=== PATIENT | female | born 1985 | race Hispanic/Latino ===

== ENCOUNTER 2017-06-19 14:10 | Emergency (ER) | payer MEDICAID ==
--- NOTE | 2017-06-19 15:41 | ULT ---
HISTORY: Pelvic cramping bilaterally. Positive test. Multiple longitudinal and transverse images of the pelvis is obtained using a multihertz curvilinear transabdominal as well as multihertz endovaginal transducers. Real time, color flow and spectral wave form doppler analysis used to evaluate the pelvis No evidence of viable intrauterine seen. The uterus measures 10.9 x 5.8 x 6.9 cm. Endometri um is double wall thickness of 2.7 cm. There is a uterine fibroid seen in the fundus measuring 1.6 x 1.6 x 1.6 cm. No evidence of free pelvi c fluid seen. Both ovaries visualized. There is good blood flow seen in both ovaries. The right ovary measures 5.0 x 2.8 x 2.6 cm containing a cyst measuring 2.0 x 1.8 x 1.8 cm. The left ovary is seen measuring 2.4 x 1.5 x 1.7 cm. IMPRESSION: 1. Right ovarian cyst. 2. No evidence of a viable intrauterine . Correlate with followup sonography and follow up HCG levels if there is concern for . POS: AMINTA
== END 2017-06-19 16:52 | disposition left against medical advice (07) ==
LOC: ERS 14:10
DX: Z53.21 Procedure and treatment not carried out due to patient leaving prior to being seen by health care provider (principal)
CPT/HCPCS: 76856

== ENCOUNTER 2017-06-19 17:38 | Emergency (ER) | payer MEDICAID, OTHER | END 2017-06-19 19:47 | disposition home or self-care (01) | LOC: ERS 17:38 | DX: R10.30 Lower abdominal pain, unspecified (principal); I10 Essential (primary) hypertension | CPT/HCPCS: 36415; 76856; 86900; 86901; 99284 ==

== ENCOUNTER 2017-08-07 11:54 | Emergency (ER) | payer OTHER | END 2017-08-07 14:23 | disposition home or self-care (01) | LOC: ERS 11:54 | DX: O98.311 Other infections with a predominantly sexual mode of transmission complicating pregnancy, first trimester (principal); O10.911 Unspecified pre-existing hypertension complicating pregnancy, first trimester; O99.341 Other mental disorders complicating pregnancy, first trimester; G47.00 Insomnia, unspecified; Z3A.11 11 weeks gestation of pregnancy | CPT/HCPCS: 99282 ==

== ENCOUNTER 2018-01-08 14:14 | Day surgery (SDC) | payer OTHER ==
[2018-01-08 14:53] VITALS: BP 135/72; TEMP 98.2; BMI 40.4
[2018-01-08] MEDS ORDERED: Promethazine HCl 25 MG/ML VIAL IM PRN (15:20)
[2018-01-08] MEDS ORDERED: Ondansetron HCl/PF 4 MG/2 ML Vial IVP PRN (15:20)
[2018-01-08] MEDS ORDERED: Acetaminophen 500 MG TAB PO SCH (15:30)
--- NOTE | 2018-01-08 15:40 | PDOC.LDHP ---
Addendum entered and electronically signed by Dell Edge MD 01/08/18 15:56: Clinic record shows that prior to 20 week, patient had baseline 24 hour protein of 378 She had a A1c of 5.4 Quad screen not at increased risk. Original Note: Labor and Delivery H&P Chief complaint: other HPI: 32 yo at 32.3 by 8.3 week US with SHALONDA at 03/02/18 presents for headache of 2 week. This complicated by gestational DM controlled with metformin 500mg BID, second trimester US with hadlock of 95%, and chronic HTN, currently on aspirin 81 mg. She complains about a headache lasting for 2 week, not relieved by tylenol. She specifically denies scotoma, RUQ pain, itching, jaundice, LE edema. Her OB hx is pertinent for 4 prior , first one was premature due to labor. Dating criteria: first trimester ultrasound Current complications: gestational diabetes, preeclampsia without severe features Abnormal US findings: Yes (Hadlock 95%, unable to fully visualize face) Current medications: pre-reyes vitamins, other (Aspirin 81 and Metformin 500 BID ) Previous surgical history: none Social history: none - Physical Exam Vital signs reviewed and normal: yes General: NAD, resting Heart: RRR Lungs: CTAB Abdomen: gravid Extremeties: no edema [place] contractions every: Not on monitor yet at this time - OB Labs Blood type: AB RH: positive Antibody Screen: negative HIV: negative RPR: negative HEPSAg: negative 1 hour GCT: positive 3 hour GTT: Fast: 70-99 1HR 187 MG/DL 2HR 164 MG/DL GBS: negative (Urine negative on 12/06) Urine drug screen: not done Rubella: immune - Assessment 1.Hx of chronic HTN, rule out superimposed pre-e. - BP mildly elevated above baselien at 147/91 but complicated by headache for past 2 week, not relieved with tylenol. She had BPP/NST that was reassuring today in clinic at 11/30, -2 for breathing. Her complicated by A1GDM that converted to A2GDM. - Plan to obtain CBC, CMP, Urine protein/creatinine ratio. Measured BP q30 min, monitor for at least 4 hours for sign of BP in severe range. - TSH was normal in clinic. 2. Gestational diabetes mellitus, class A2 Was last reported to be uncontrolled, patient was then started on metformin 500 BID. She does not have her sugar log with her today. Will gather a glucose level. Recheck as needed. - Patient to resume weekly BPP/NST at clinic. <Dell Edge - Last Filed: 01/08/18 15:26> <Diana Dunn - Last Filed: 01/09/18 13:16> Allergies/Adverse Reactions: Allergies Allergy/AdvReac Type Severity Reaction Status Date / Time No Known Allergies Allergy Unverified 01/08/18 14:49 Attending Addendum - Attending Addendum Date/Time: 01/09/18 7234 I personally evaluated the patient and discussed the management with Dr. Edge I agree with the History, Examination, Assessment and Plan documented above with any addition or exceptions noted below. 32 yo at 32.3 by 8.3 week US sent from clinic for LEON x 2 week in setting of chronic HTN. Pt describes frontal headache without photo/phonophobia , nausea, vomiting, visual changes or RUQ pain. She states she has only tried to take 1 tylenol. Home BP has been normotensive. While in triage BP remained normotensive or mild range. LEON improved with 1000mg of tylenol. Preeclampsia labs: PLT-253 AST- 14 ALT-9 Creatinine-0.63 Urine protein:Creatinine ratio- 0.109 Laboratory findings, symptoms and blood pressures not consistent with superimposed preeclampsia at this time D/C to home with 24hr TUP collection and strict precautions. Followup scheduled with PCP this week. <Diana Dunn - Last Filed: 01/09/18 13:16>
[2018-01-08 16:21] LABS: #Basophils 0.1 thou/uL (0.0-0.2); #Eosinphils 0.1 thou/uL (0.0-0.7); #Lymphocytes 1.5 thou/uL (1.20-3.40); #Monocytes 0.6 thou/uL (0.11-0.59); #Neutrophils 5.4 thou/uL (1.40-6.50); %Basophils 0.8 % (0.0-1.0); %Eosinophils 1.2 % (0.0-10.0); %Lymphocytes 19.2 % (21.0-51.0); %Monocytes 7.8 % (0.0-10.0); %Neutrophils 70.9 % (42.0-75.0); Hemoglobin 13.1 g/dL (12.0-16.0); Mean Corpuscular HGB CONC 34.6 g/dL (32.0-36.0); Mean Corpuscular Hemoglobin 30.1 pg (27.0-31.0); Mean Platelet Volume 7.4 fL (7.4-10.4); Platelet Count 253 thou/uL (130-400); RBC Distribution Width 12.1 % (11.5-14.5); Red Blood Cell (RBC) Count 4.37 mill/uL (4.20-5.40); White Blood Cell (WBC) Count 7.6 thou/uL (4.8-10.8)
[2018-01-08 16:45] LABS: ALT (SGPT) 9 U/L (8-55); AST (SGOT) 14 U/L (5-34); Albumin 3.5 g/dL (3.5-5.0); Alkaline Phosphatase 112 U/L (40-150); Anion Gap 15 mmol/L (10-20); BUN (Urea Nitrogen) 8 mg/dL (7.0-18.7); Bilirubin, Total 0.5 mg/dL (0.2-1.2); Calc. Creatinine Clearance 198 mL/min (70-130); Calcium 9.2 mg/dL (7.8-10.44); Carbon Dioxide 19 mmol/L (22-29); Chloride 107 mmol/L (98-107); Estimated GFR-MDRD Greater than 90; Globulin 3.2 g/dL (2.4-3.5); Glucose 116 mg/dL (70-105); Potassium 3.8 mmol/L (3.5-5.1); Protein, Total 6.7 g/dL (6.0-8.3); Sodium 137 mmol/L (136-145)
[2018-01-08 16:50] LABS: Creatinine, Urine 200.88 mg/dL (47-110)
== END 2018-01-08 17:33 | disposition home or self-care (01) ==
LOC: L&D/OP 14:14
PROVIDERS: ATTEND Family Medicine
DX: O99.89 Other specified diseases and conditions complicating pregnancy, childbirth and the puerperium (principal); R51 Headache; O24.415 Gestational diabetes mellitus in pregnancy, controlled by oral hypoglycemic drugs; O10.013 Pre-existing essential hypertension complicating pregnancy, third trimester; Z3A.32 32 weeks gestation of pregnancy; Z79.84 Long term (current) use of oral hypoglycemic drugs; Z79.82 Long term (current) use of aspirin; Z79.899 Other long term (current) drug therapy
CPT/HCPCS: 36415; 80053; 82570; 84156; 85025; 99285

== ENCOUNTER 2018-01-22 14:17 | Observation (INO) | payer MEDICAID, OTHER ==
--- NOTE | 2018-01-22 14:28 | PDOC.FPROB ---
FMR OB H&P: HPI - History of Present Illness Chief Complaint: Elevated BP, Swelling of hands and feet, Headache Indentification: @ 34.3 wks by 8.3 wk sono History of Present Illness: Rebekah Du is a 32 year old @ 34.3 wks by 8.3 wk sono (SHALONDA 03/02/2018 ) with a history of A2GDM and chronic hypertension with superimposed pre-e who presents who was sent over from clinic with elevated blood pressures, headache, and swelling of her hands and feet. Pt was receiving testing today. Her BP was 156/78 (repeat of 128/78). She reports constant frontal headache () since 6 AM this morning. She states that she took Tylenol this morning but her headache did not resolve with Tylenol, however she reports that her headaches have never been responsive to Tylenol. She denies abdominal pain, scotoma, nausea and vomiting. She denies vaginal bleeding, contractions, and decrease in movements. Over the course of this , her proteinuria has increased above baseline. In August 2017 her 24 hr urine was 378 and in December was 522 mg. BPP today in clinic 01/30. EFW 2532 g and Hadlock 57.5%. Primary Care Physician: Dr. Lashonda Sullivan FMR OB H&P: Current - Care : 5 Para: 3 Gestational age: 34.3 Due date: 03/02/2018 Dating Criteria: 8.3 week sono Total weight gain: 8 lbs - OB Labs Blood type: AB RH: positive Antibody Screen: negative HIV: negative RPR: negative HepBsAg: negative Rubella: immune Quad screen: negative Urine drug screen: not done Gonorrhea: negative Chlamydia: negative 1 hour gtt: 167 3 hour GTT: Fasting - 112; 187,164,115 A1c: 5.4 GBS: unknown H&H: 12.8/36.3 Platelets: 279 FMR OB H&P: History - OB History OB History: Has a history of delivery @ 28 wks with her 1st and has never taken progesterone. FMR OB H&P: Medications - Current Home Medications: Medication Instructions Recorded Confirmed Type Vit Calc,Iron,Folic 1 each PO DAILY 01/08/18 01/22/18 History [ Vitamins] metFORMIN [Glucophage] 500 mg PO BID-WM 01/08/18 01/22/18 History Allergies/Adverse Reactions: Allergies Allergy/AdvReac Type Severity Reaction Status Date / Time No Known Allergies Allergy Unverified 01/22/18 15:22 FMR OB H&P: ROS - Review of Systems General: denies: fever/chills Eyes: denies: eye pain, vision changes, scotomas ENT: reports: nasal congestion Cardiovascular: denies: chest pain Respiratory: denies: shortness of breath Gastrointestinal: denies: abdominal pain Musculoskeletal: denies: pain Neurologic: reports: headache Integumentary: denies: rash Endocrine: denies: polyuria FMR OB H&P: Physical Exam - Physical Exam General: NAD HEENT: normocephalic and atraumatic, EOMI, MMM Heart: RRR, normal S1/S2, no murmurs/rubs/gallops General: CTAB, no respiratory distress, no wheezing Abdomen: soft, gravid, non-tender Musculoskeletal: FROM in all four extremities Neurological: cranial nerves II through XII intact, DTR +2 Skin: no rash, capillary refill <2 seconds Psychiatric: normal mood and affect - Pelvic Exam Estimated Weight: 5 lbs FMR OB H&P: A/P - Problem List (1) Pre-eclampsia added to pre-existing hypertension Current Visit: Yes Status: Acute Code(s): O11.9 - PRE-EXISTING HYPERTENSION WITH PRE-ECLAMPSIA, UNSP TRIMESTER Assessment and Plan: - will monitor BPs on L&D for ~ 4 hours. - will administer 1 g Tylenol and fluids to see if LEON improves. - will rule out severe features with labs including: CBC, uric acid, cmp, urine pr/cr in order to check for liver involvement, thrombocytopenia, liver involvement and renal injury. - if no evidence of severe features, will discharge with expectant management until 37 weeks. - if severe features present, will administer steroids and induce in 48 hrs. (2) Gestational diabetes mellitus (GDM) Current Visit: Yes Status: Acute Code(s): O24.419 - GESTATIONAL DIABETES MELLITUS IN , UNSP CONTROL Qualifiers: Trimester: third trimester Assessment and Plan: Will resume Metformin and check glucose with CMP. Discussion: Date/Time: 01/22/18 9982 This H&P was discussed with Dr. Macedo who agrees with the above documentation and plan. Attending Addendum - Attending Addendum Date/Time: 01/22/18 1730 I personally evaluated the patient and discussed the management with team and Dr. Gay. I agree with and repeated the History, Examination, Assessment and Plan documented above with any addition or exceptions noted below. Pt with headaches off and on x 1 month, similar in nature, with intermittent spots in vision, no PARMINDER/RUQ pain who was seen in [facility] and noted to have elevated BP and headache and sent over. Since arrival most BP's 130's. No clonus or increased dtr's. Will plan on giving 1 g APAP, sending preE labs, and considering for a tox watch vs induction vs home pending reevaluation. I have discussed all this with Dr. Dukes who is assuming care this evening.
[2018-01-22 15:24] VITALS: BMI 40.8
[2018-01-22] MEDS ORDERED: Acetaminophen 500 MG TAB PO SCH (16:00)
[2018-01-22 16:02] LABS: #Eosinphils 0.1 thou/uL (0.0-0.7); #Lymphocytes 1.5 thou/uL (1.20-3.40); #Monocytes 0.7 thou/uL (0.11-0.59); #Neutrophils 5.6 thou/uL (1.40-6.50); %Basophils 0.2 % (0.0-1.0); %Eosinophils 1.2 % (0.0-10.0); %Lymphocytes 18.9 % (21.0-51.0); %Neutrophils 70.7 % (42.0-75.0); Hemoglobin 13.3 g/dL (12.0-16.0); Mean Corpuscular HGB CONC 34.9 g/dL (32.0-36.0); Mean Corpuscular Hemoglobin 30.4 pg (27.0-31.0); Mean Platelet Volume 7.3 fL (7.4-10.4); Platelet Count 251 thou/uL (130-400); RBC Distribution Width 12.3 % (11.5-14.5); Red Blood Cell (RBC) Count 4.36 mill/uL (4.20-5.40)
[2018-01-22 16:25] LABS: ALT (SGPT) 12 U/L (8-55); AST (SGOT) 14 U/L (5-34); Albumin 3.4 g/dL (3.5-5.0); Alkaline Phosphatase 123 U/L (40-150); Anion Gap 14 mmol/L (10-20); BUN (Urea Nitrogen) 10 mg/dL (7.0-18.7); Bilirubin, Total 0.5 mg/dL (0.2-1.2); Calc. Creatinine Clearance 203 mL/min (70-130); Carbon Dioxide 17 mmol/L (22-29); Chloride 108 mmol/L (98-107); Estimated GFR-MDRD Greater than 90; Globulin 3.1 g/dL (2.4-3.5); Glucose 117 mg/dL (70-105); Potassium 3.9 mmol/L (3.5-5.1); Protein, Total 6.5 g/dL (6.0-8.3); Sodium 135 mmol/L (136-145); Uric Acid 5.4 mg/dL (2.6-6.0)
[2018-01-22 16:25] LABS: Creatinine, Urine 172.28 mg/dL (47-110)
[2018-01-22] MEDS ORDERED: Lactated Ringer's 500 ML IV SCH (16:45)
[2018-01-22] MEDS: metFORMIN 500 MG TAB PO SCH (19:29)
--- NOTE | 2018-01-22 19:36 | PDOC.LDPN ---
Labor & Delivery Progress Note - Subjective Subjective: comfortable, no concerns - Objective Vital signs reviewed and normal: yes General: NAD, resting Uterine fundus: non tender Dilation: 2 Effacement: 0% Station: -3 FHT: category 1, variability present [place] contractions every: none - Assessment (1) Gestational diabetes mellitus (GDM) Code(s): O24.419 - GESTATIONAL DIABETES MELLITUS IN , UNSP CONTROL Current Visit: Yes Status: Acute Qualifiers: Trimester: third trimester (2) Pre-eclampsia added to pre-existing hypertension Code(s): O11.9 - PRE-EXISTING HYPERTENSION WITH PRE-ECLAMPSIA, UNSP TRIMESTER Current Visit: Yes Status: Acute Plan: continue plan of care -: Patient is a 32 yo F who presented with elevated BPs, headache, with hx of pre-E , chronic HTN, and pre-term labor. Pre-Eclampsia and chronic HTN - will continue to monitor BPs; improved to 140s/70s - Informally consulted Dr. Jesus: appreciate recs - Will check glucose qACHS - Will begin Migraine protocol of iona and boy for headache - Cervical check @ 1900: - unfavorable cervix; Vargas score 3 - Will administer steroids - Will consider induction after observation of BPs, glucose, and headache - Pre-E labs neg but patient continues to have headache; will continue to monitor, no vision changes - Will admit patient to administer steroids and will consider induction if headache does not resolve or other symptoms arise
[2018-01-22] MEDS ORDERED: Dextrose 5% in Water 1,000 ML IV PRN (19:41)
[2018-01-22] MEDS ORDERED: Dextrose 50% Abboject 50 ML SYRINGE SLOW IVP PRN (19:41)
[2018-01-22] MEDS ORDERED: Betamet Acet/Betamet Na Ph 30 MG/5 ML VIAL ONE (19:48)
--- NOTE | 2018-01-22 19:48 | PRG ---
DATE OF SERVICE: 01/22/2018 [place] attending physician progress note. This is an informal consultation per the resident team on this patient, who is being observed in Labor and Delivery. REASON FOR EVALUATION: History of chronic hypertension and A2 diabetes mellitus , at 34 weeks and a few days, with 1-month history of persistent headache. HISTORY OF PRESENT ILLNESS: In brief, this is a patient, who was being evaluated by the campus president team. The patient is a 32-year-old at 34 weeks and 3 days by 8-week ultrasound with a history of A2 diabetes and chronic hypertension, not on medications, who was noted to have a blood pressure of 150/90s and she was having a headache for a month. She was kept in Labor and Delivery for evaluation. Highest blood pressure this evaluation was 156/78. She denies any visual changes or right upper quadrant pain. She denies vaginal bleeding. She has good movement. She has had a headache that has been unresponsive to Tylenol, but no other symptoms. OB HISTORY: She is a 5, para 3 with the EGA of 34 weeks and 3 days at this time. She has good dating criteria, which is an 8-week ultrasound. LABORATORY DATA: Includes a hemoglobin A1c of 5.4 from the admission history and physical notes, GBS is unknown, platelets are 279. She has a history of abnormal 3-hour GTT given her diagnosis of A2 diabetes. She is on metformin. She was not on low dose aspirin. ASSESSMENT and PLAN: I evaluated the patient and have discussed the case with the residents quality control systems manager. As the patient's only diagnosis suspicious for worsening disease, worsening disease is 1 month history of headache, we will attempt to migraine prophylaxis which is Reglan and Benadryl to see if that improves her symptoms. Blood pressures are not in the severe range. We will give her betamethasone for lung maturity in case delivery is necessary. We will monitor her capillary blood glucose levels, status post steroids as she has A2 diabetes. I have also recommended the resident check her cervix to see the cervix is favorable for induction if necessary. She has a recent biophysical profile, which was 10/10 in the clinic earlier today and the baby's head was cephalic. There was no evidence of growth restriction. So, overall plan is to observe the patient in Labor and Delivery to see if her headache improved with Reglan and Benadryl as an atypical migraine/vascular headache. If the headache does not resolve, after steroid benefit, we may consider induction of labor. There is no lab abnormalities at this time and blood pressures are in the non-severe range. We will consider magnesium sulfate when induction of labor occurs if necessary. For now, continue capillary blood sugar assessment and assessment of her blood pressures and headache resolution. Administer steroids with close glycemic evaluation. AGUSTÍND
[2018-01-22] MEDS: diphenhydrAMINE 50 MG/ML VIAL IVP SCH ×2 (19:50→20:50)
[2018-01-22] MEDS: Metoclopramide HCl 10 MG/2 ML VIAL IVP SCH ×4 (19:50→21:20)
[2018-01-22] MEDS: Betamet Acet/Betamet Na Ph 30 MG/5 ML VIAL IM SCH (20:06)
[2018-01-22] MEDS: Lactated Ringer's 1,000 ML IV SCH (21:16)
[2018-01-23] MEDS: Lactated Ringer's 500 ML IV SCH (04:54)
[2018-01-23] MEDS: Lactated Ringer's 1,000 ML IV SCH (05:56)
[2018-01-23] MEDS: Acetaminophen 500 MG TAB PO PRN ×2 (06:20→13:20)
--- NOTE | 2018-01-23 06:45 | PDOC.FM ---
- Subjective Subjective: Pt said medications helped with headache last night (it improved to 2/10), but headache returned this morning, pain is 5/10, bilateral frontal headache. Pt states she did not have headaches before this , these headaches are new for her. Tylenol this morning did not help her headache. She has swelling in her hands and feet, denied upper abdominal pain. Baby moving well, no LOF, or vaginal bleeding. - Objective Vital Signs & Weight: Vital Signs (12 hours) Temp Pulse Resp BP Pulse Ox 01/23/18 02:03 98.1 F 71 18 128/70 01/22/18 21:30 98.1 F 75 18 129/66 98 Weight Weight 97.976 kg Result Diagrams: 01/22/18 15:52 01/22/18 15:52 <Galina Berumen - Last Filed: 01/23/18 07:57> - Objective Vital Signs & Weight: Vital Signs (12 hours) Temp Pulse Resp BP Pulse Ox 01/23/18 07:59 97.7 F 78 16 124/74 96 01/23/18 05:55 97.9 F 72 18 120/65 01/23/18 02:03 98.1 F 71 18 128/70 Weight Weight 97.976 kg I&O: 01/22/18 01/23/18 01/24/18 06:59 06:59 06:59 Intake Total 1277 Output Total 900 Balance 377 Result Diagrams: 01/22/18 15:52 01/22/18 15:52 <Trip Macedo - Last Filed: 01/23/18 10:02> Phys Exam - Physical Examination Constitutional: NAD HEENT: PERRLA, moist MMs, sclera anicteric Neck: supple +cervical LAD Respiratory: wheezing present Cardiovascular: RRR, no significant murmur Gastrointestinal: soft Gravid, NTTP Musculoskeletal: pulses present, edema present nonpitting edema in hands and feet Neurological: moves all 4 limbs Psychiatric: normal affect, A&O x 3 Skin: no rash, normal turgor, cap refill <2 seconds <Galina Berumen - Last Filed: 01/23/18 07:57> Dx/Plan (1) Gestational diabetes mellitus (GDM) Code(s): O24.419 - GESTATIONAL DIABETES MELLITUS IN , UNSP CONTROL Status: Acute Qualifiers: Trimester: third trimester (2) Pre-eclampsia added to pre-existing hypertension Code(s): O11.9 - PRE-EXISTING HYPERTENSION WITH PRE-ECLAMPSIA, UNSP TRIMESTER Status: Acute - Plan Plan: Patient is a 32 yo F who presented with elevated BPs, headache, with hx of pre-E , chronic HTN, and pre-term labor. Pre-Eclampsia and chronic HTN - will continue to monitor BPs; improved to 120s/70s - Informally consulted Dr. Jesus: appreciate recs - Pt received migraine protocol last night : reglan and benadryl -Headache improved last night, but worse this morning 08/30 - Pt states she did not have headaches before . This is new for her - Tylenol this morning did not improve the pain - SVE 1900 01/22/18: //- unfavorable cervix, lion of 3 - received betamethasone - Pre-E labs neg but patient continues to have headache; will continue to monitor - Consider induction A2GDM -Continue metformin -Received insulin this morning, as betamethasone spiked blood sugars -hypoglycemia protocol in place <Galina Berumen - Last Filed: 01/23/18 07:57> (1) Pre-eclampsia added to pre-existing hypertension Code(s): O11.9 - PRE-EXISTING HYPERTENSION WITH PRE-ECLAMPSIA, UNSP TRIMESTER Status: Acute (2) Gestational diabetes mellitus (GDM) Code(s): O24.419 - GESTATIONAL DIABETES MELLITUS IN , UNSP CONTROL Status: Acute Qualifiers: Trimester: third trimester <Trip Macedo - Last Filed: 01/23/18 10:02> Attending Addendum - Attending Addendum Date/Time: 01/23/18 8514 I personally evaluated the patient and discussed the management with Michael Heller and team. I agree with and repeated the History, Examination, Assessment and Plan documented above with any addition or exceptions noted below. Headache improved yesterday but back today. Has some blurry vision but no distinct scotoma. No change in character or nature of the headache. No focal neurologic signs. Vitals reviewed. All < 130/80 since transferred to the floor. RRR s M CTAB except faint wheezing heard on left anterior chest No clonus, normal DTRs Labs reviewed. A/P: KVO IVF Continue steroids Increase sugar checks and insulin for usual goals pre and postprandial. I have told the patient I would prefer to switch her over to insulin but she is adamant that she will not take it if she goes home. Will discuss with grinder set up operator centerless today for their assistance. Unfortunately a difficult case diagnostically with a nonadherent patient who lives in [place]. <Trip Macedo - Last Filed: 01/23/18 10:02>
[2018-01-23] MEDS: HumaLOG 300 UNITS/3 ML VIAL SC PRN (06:50)
[2018-01-23] MEDS ORDERED: Metoclopramide HCl 10 MG/2 ML VIAL IVP SCH ×2 (08:30→11:45)
[2018-01-23] MEDS: metFORMIN 500 MG TAB PO SCH ×2 (09:11→17:10)
[2018-01-23] MEDS: Prenatal Vitamin 1 TAB PO SCH (09:12)
[2018-01-23] MEDS ORDERED: diphenhydrAMINE 50 MG/ML VIAL IVP SCH (12:00)
--- NOTE | 2018-01-23 12:17 | PDOC.EVN ---
Event Note - Event Note Event Note: Discussed patient's case with Dr. Sweet in order to help determine whether or not patient is a candidate for induction at 34 weeks. Per her recommendations, given that patient's headache has been responsive to Reglan and benadryl and her BPs have not been in severe range, and labwork completed here has been normal, patient does not meet criteria for severe features. Therefore induction at 34 weeks is not indicated. She recommended continued testing and induction at 37 weeks. Also given that patient lives in 45 minutes away and has a history of noncompliance with office visits, we discussed whether or not there would be added benefit to keeping the patient and inducing now. Dr. Sweet recommended that this alone would not be an indication for induction and we could potentially discuss keeping the patient in the hospital until 37 weeks if noncompliance is an issue. I discussed with the patient the importance of keeping all office visits, and visits for testing in order to monitor for adverse effects to both the patient and fetus. She expressed understanding and stated that she would keep all appointments. At this point we will likely keep patient on for continued serial BP monitoring, qshift NSTs, fasting/PP accuchecks symptomatic treatment of headache , and to receive a 2nd dose of betamethasone. If headache continues to respond to reglan and BPs remain wnl, will likely discharge tomorrow morning <Teetee Rodriguez - Last Filed: 01/23/18 12:41> Attending Addendum - Attending Addendum Date/Time: 01/23/18 1431 I agree with the above. Appreciate secured entrance monitor input. <Trip Macedo - Last Filed: 01/23/18 14:31>
[2018-01-23] MEDS ORDERED: diphenhydrAMINE 25 MG CAP PO SCH ×2 (12:30→13:15)
[2018-01-23] MEDS ORDERED: Sodium Chloride 0.9% 10 ML ONE (21:01)
[2018-01-23] MEDS: Betamet Acet/Betamet Na Ph 30 MG/5 ML VIAL IM SCH (21:06)
[2018-01-24] MEDS: Acetaminophen 500 MG TAB PO PRN (04:57)
[2018-01-24] MEDS ORDERED: Sodium Chloride 0.9% 10 ML ONE (06:32)
--- NOTE | 2018-01-24 06:37 | PDOC.FM ---
- Subjective Subjective: Pt says headache improved again yesterday with reglan/benedryl. States headache is improved from yesterday, 06/02 this morning. - Objective Vital Signs & Weight: Vital Signs (12 hours) Temp Pulse Resp BP Pulse Ox 01/24/18 04:50 97.8 F 75 18 136/73 01/24/18 00:38 98.3 F 81 18 129/62 01/23/18 20:01 98.1 F 77 20 135/63 98 Weight Weight 97.976 kg I&O: 01/22/18 01/23/18 01/24/18 06:59 06:59 06:59 Intake Total 1277 Output Total 900 Balance 377 Result Diagrams: 01/22/18 15:52 01/22/18 15:52 <Galina Berumen - Last Filed: 01/24/18 07:47> - Objective Vital Signs & Weight: Vital Signs (12 hours) Temp Pulse Resp BP Pulse Ox 01/24/18 08:07 97.9 F 81 20 145/68 H 97 01/24/18 04:50 97.8 F 75 18 136/73 01/24/18 00:38 98.3 F 81 18 129/62 Weight Weight 97.976 kg I&O: 01/23/18 01/24/18 01/25/18 06:59 06:59 06:59 Intake Total 1277 500 Output Total 900 Balance 377 500 Result Diagrams: 01/22/18 15:52 01/22/18 15:52 <Trip Macedo - Last Filed: 01/24/18 09:38> Phys Exam - Physical Examination Constitutional: NAD HEENT: PERRLA, moist MMs, oral pharynx no lesions Neck: no nodes, supple Respiratory: no wheezing, clear to auscultation bilateral Cardiovascular: RRR, no significant murmur Gastrointestinal: soft Musculoskeletal: pulses present, edema present nonpitting edema in hands and feet Neurological: moves all 4 limbs Psychiatric: normal affect, A&O x 3 Skin: normal turgor, cap refill <2 seconds <Galina Berumen - Last Filed: 01/24/18 07:47> Dx/Plan (1) Gestational diabetes mellitus (GDM) Code(s): O24.419 - GESTATIONAL DIABETES MELLITUS IN , UNSP CONTROL Status: Acute Qualifiers: Trimester: third trimester (2) Pre-eclampsia added to pre-existing hypertension Code(s): O11.9 - PRE-EXISTING HYPERTENSION WITH PRE-ECLAMPSIA, UNSP TRIMESTER Status: Acute - Plan Plan: 32 yo who presented with elevated BPs, headache, with hx of pre-E, chronic HTN, and pre-term labor. Pre-Eclampsia and chronic HTN - Pre-E work up here has been negative. BP overnight 130s/70s - Headache improved to 2/10 this morning. Pt received migraine protocol again yesterday: reglan and benadryl. Patient's stated she feels much better this AM - Received 2nd dose steroids last night - Informally consulted Dr. Jesus and Dr. Sweet, we appreciate their recommendations. Pt does not meet criteria for Pre-E with severe features at this time, so there is no indication to induce her until 37 weeks. Pt has a history of noncompliance and lives in [place], which complicates her care. Patient needs close follow up after possible discharge today. Pt stated yesterday that she would check and post prandial glucoses at home, and would come to all of her appointments. A2GDM -Metformin increased to 1000 BID. Pt stated yesterday that she would not take insulin if it was prescribed for her. - glucose 150 this morning after drinking some sugary soda (not fasting) <Galina Berumen - Last Filed: 01/24/18 07:47> (1) Pre-eclampsia added to pre-existing hypertension Code(s): O11.9 - PRE-EXISTING HYPERTENSION WITH PRE-ECLAMPSIA, UNSP TRIMESTER Status: Acute (2) Gestational diabetes mellitus (GDM) Code(s): O24.419 - GESTATIONAL DIABETES MELLITUS IN , UNSP CONTROL Status: Acute Qualifiers: Trimester: third trimester <Trip Macedo - Last Filed: 01/24/18 09:38> Attending Addendum - Attending Addendum Date/Time: 01/24/18932 I personally evaluated the patient and discussed the management with Dr. Berumen and team. I agree with and repeated the History, Examination, Assessment and Plan documented above with any addition or exceptions noted below. Patient says headache resolved this AM. No RUQ/PARMINDER pain. No fever, chills. No n/v. No leg pain or cramps. She would like to go home. vitals reviewed; one elevated, none severe range, all the others have been <140' s systolic. RRR s M CTAB s w/r/r or inc wob Bs+, NTTP No clonus or increased DTRs labs reviewed A/P: chronic hypertension with likely superimposed preeclampsia, diagnosed by increased proteinuria, and no signs of severe features headache, likely migraine, resolved A2DM, poorly controlled 1. Plan for discharge today with resolution of headache and reassuring stay. Appreciate glove parts inspector input and recommendations. 2. Metformin increased to 1000 mg bid. 3. For migraines rx sent. 4. Today we spent extensive time educating the patient on return precautions for blood pressure as well as signs of severe preeclampsia. We have also discussed complications of her comorbidities, including stroke, seizure, abruption, IUFD, respiratory problems in baby, NICU admission, etc, and need to watch her diet closely the next two weeks. She is to keep a BP and sugar log and we will see her tomorrow in clinic. 5. Plan for induction at 37w0d. GBS to be performed at next clinic visit. Labs at least weekly. <Trip Macedo - Last Filed: 01/24/18 09:38>
[2018-01-24] MEDS: HumaLOG 300 UNITS/3 ML VIAL SC PRN (06:38)
[2018-01-24 08:07] VITALS: BP 145/68; TEMP 97.9
[2018-01-24] MEDS: Prenatal Vitamin 1 TAB PO SCH (09:38)
[2018-01-24] MEDS: metFORMIN 500 MG TAB PO SCH (09:38)
--- NOTE | 2018-01-25 07:50 | DIS-2 ---
DATE OF ADMISSION: 01/22/2018 DATE OF DISCHARGE: 01/24/2018 RESIDENT: Galina Berumen M.D. ADMITTING ATTENDING: Trip Macedo M.D. DISCHARGE ATTENDING: Trip Macedo M.D. CONSULTS: passementerie worker: Dr. Jesus, Dr. Sweet PROCEDURES: None. PRIMARY DIAGNOSIS: 1. Chronic Hypertension with superimposed preeclampsia without severe features. 2. Migraine headaches SECONDARY DIAGNOSES: 1. A2 gestational diabetes mellitus. 2. in third trimester. DISCHARGE MEDICATIONS: 1. Benadryl 25 mg p.o. q.6 hours p.r.n. for headache. 2. Metformin 1000 mg p.o. b.i.d.. 3. Reglan 10 mg p.o. q.6 hours p.r.n. for headache. DISCONTINUED MEDICATIONS: None. HISTORY OF PRESENT ILLNESS AND HOSPITAL COURSE: Rebekah Du is a 32-year-old G5, P3-0-1-4 at 34.4 weeks at 8.3 week sono (estimated due date is 03/02/2018) with history of A2 GDM and chronic hypertension with superimposed PE who presents after being sent over from clinic with elevated blood pressures, headache and swelling of her hands and feet. The patient receiving testing today. Her blood pressure was 156/78, repeat read 128/78. She reports constant frontal headaches that are 6/10 in pain since 6:00 a.m. this morning. She states that she took Tylenol this morning, but her headache did not resolve , however, she reports that her headaches have never been responsive to Tylenol. She denies abdominal pain, scotoma, nausea and vomiting. She denies vaginal bleeding, contractions and decrease in movements. Over the course of this , her proteinuria has increased above baseline. In 2017, her 24-hour urine was 378 mg protein and in December it was 522 mg protein. BPP today in clinic was 10/10. Estimated weight 2532 grams [place] 57.5%. Her PCP is Dr. Lashonda Pyle. Her pre-workup in the hospital was negative. Her blood pressures are in 130s/ 70s. Her headache improved with Reglan and Benadryl. We consulted Dr. Jesus and Dr. Sweet; the patient does not meet criteria for PE with severe features at this time, so there is no indication to induce her until 37 weeks. The patient has a history of noncompliance and was in [place], which complicates her care. The patient requires close follow up after discharge. The patient stated that she would check her pre and post-prandial glucoses at home and reports that she will come to all of her appointments. Increased risk of stroke , seizure, abruption and intrauterine was discussed with the patient. A2 GDM. We increased her metformin to 1000 b.i.d. after her morning glucoses were high. The patient was adamant that they would not take insulin it was prescribed for her. Her glucose this morning after having some sugar soda it was 150. The patient states that she will check her glucoses at home. DISPOSITION: Stable. DISCHARGE INSTRUCTIONS: 1. Location: Home. 2. Diet: Diabetic diet. 3. Activity: As tolerated. 4. Followup: Follow up with PCP on Sunday (in 1 day). [place]
== END 2018-01-24 11:00 | disposition home health service (06) ==
LOC: L&D/OP 14:17 → 3SW 19:28 → INTOOBSV 19:28
PROVIDERS: ADMIT Family Medicine; ATTEND Family Medicine
DX: O10.013 Pre-existing essential hypertension complicating pregnancy, third trimester (principal); O11.3 Pre-existing hypertension with pre-eclampsia, third trimester; O24.415 Gestational diabetes mellitus in pregnancy, controlled by oral hypoglycemic drugs; O99.353 Diseases of the nervous system complicating pregnancy, third trimester; G43.909 Migraine, unspecified, not intractable, without status migrainosus; Z79.84 Long term (current) use of oral hypoglycemic drugs; Z79.899 Other long term (current) drug therapy; Z91.19 Patient's noncompliance with other medical treatment and regimen; Z3A.34 34 weeks gestation of pregnancy
CPT/HCPCS: 36415; 36416; 59025; 80053; 82570; 84156; 84550; 85025; 99285; J0702; J1200; J2765

== ENCOUNTER 2018-02-06 11:25 | Day surgery (SDC) | payer MEDICAID, OTHER ==
[2018-02-06 11:57] VITALS: BP 152/88; TEMP 97.9; BMI 41.0
[2018-02-06 12:21] LABS: Amnisure Test No Membranes Rupture (No Rupture)
[2018-02-06 12:23] LABS: Amnisure Internal Control QC ACCEPTABLE (ACCEPTABLE)
--- NOTE | 2018-02-06 14:35 | PDOC.FPROB ---
FMR OB H&P: HPI - History of Present Illness Chief Complaint: "water broke" Indentification: 32yo @36.4w EGA by 1TUS History of Present Illness: 32yo @36.4w EGA by 1TUS presenting for evaluation of ruptured membranes. Pt reports that this morning while doing her laundry she noticed a small gush of fluid that saturated her underwear. She reported to [facility] clinic and was found to have pooling on speculum exam. Pt has history of HTN with diagnosed Pre-E (two weeks ago in hosptial s/p steroids), as well as a hx of A2GDM controlled with metformin 1000mg BID (reported fasting BG 80s-90s). No headache/visual disturbance/cp/sob/edema. Reports good mvmt, no vaginal bleeding/discharge. Pt feels contractions every 15-20min that are painful (09/30) . FMR OB H&P: Current - Care : 5 Para: 3104 Gestational age: 36.4 Due date: 03/02/2018 Dating Criteria: 1T US - OB Labs Blood type: AB RH: positive Antibody Screen: negative HIV: negative RPR: negative HepBsAg: negative Rubella: immune Gonorrhea: negative Chlamydia: negative GBS: unknown FMR OB H&P: History - Past Medical History PMH: HTN - Surgical History Sx History: cholecystectomy 2001 - Social History Social History: Denies EtOH/tobacco/drugs - Family History Family History: DM2, HTN FMR OB H&P: Medications - Current Home Medications: Medication Instructions Recorded Confirmed Type Vit Calc,Iron,Folic 1 each PO DAILY 01/08/18 02/06/18 History [ Vitamins] Metoclopramide HCl [Reglan] 10 mg PO Q6HR #20 tab 01/24/18 02/06/18 Rx metFORMIN [Glucophage] 1,000 mg PO BID-WM 30 Days #120 tab 01/24/18 02/06/18 Rx Allergies/Adverse Reactions: Allergies Allergy/AdvReac Type Severity Reaction Status Date / Time No Known Allergies Allergy Verified 02/06/18 11:57 FMR OB H&P: ROS - Review of Systems General: denies: fever/chills, recent trauma Eyes: denies: eye pain, vision changes, double vision ENT: denies: nasal congestion, rhinorrhea, sore throat Cardiovascular: denies: chest pain, palpitation Respiratory: denies: cough, congestion, shortness of breath Gastrointestinal: denies: abdominal pain, nausea, vomiting Genitourinary (Female): denies: hematuria, vaginal discharge, vaginal pain, vaginal bleeding Musculoskeletal: denies: pain, stiffness Neurologic: denies: syncope, seizures Integumentary: denies: rash, lesions Endocrine: denies: cold intolerance, heat intolerance Hematologic/Lymphatic: denies: prolonged or excessive bleeding Psychological: denies: depression, anxiety FMR OB H&P: Vital Signs - Maternal Vital signs: Vital Signs - First Documented Temp Pulse Resp BP 97.9 F 98 18 152/88 H 02/06/18 11:44 02/06/18 11:44 02/06/18 11:44 02/06/18 11:44 FMR OB H&P: Physical Exam - Physical Exam General: NAD, awake, alert and oriented HEENT: normocephalic and atraumatic, EOMI, MMM, conjunctiva clear, grossly normal hearing Neck: supple Chest: non-tender to palpation Heart: RRR, normal S1/S2 General: CTAB, no respiratory distress Abdomen: soft, gravid Musculoskeletal: pulses present Neurological: sensation to pain,touch and proprioception grossly normal Skin: no rash, good tugor Lymphatic: no unusual bruising or bleeding, no purpura Psychiatric: intact recent and remote memory, good judgement and insight FMR OB H&P: Results - Labs Lab results: Laboratory Results - last 24 hr 02/06/18 02/06/18 12:00 12:37 POC Glucose 139 H Amnio Swab Test No Membranes Rupture FMR OB H&P: A/P - Problem List (1) premature rupture of membranes Status: Acute Code(s): O42.919 - PRETRM BART ROM, UNSP TIME BETW RUPT AND ONST LABR, UNSP TRI (2) Gestational diabetes mellitus (GDM) Status: Acute Code(s): O24.419 - GESTATIONAL DIABETES MELLITUS IN , UNSP CONTROL Qualifiers: Trimester: third trimester (3) Pre-eclampsia added to pre-existing hypertension Status: Acute Code(s): O11.9 - PRE-EXISTING HYPERTENSION WITH PRE-ECLAMPSIA, UNSP TRIMESTER Discussion: PPROM A- Reports LOF with pooling with steril spec exam in clinic. Amnisure is negative. FHTs reassuring. P- will f/u on steril spec done in clinic, being evaluated for ferning -bedside US -monitor vitals and FHT -will consider induction pending positive results of ferning test. A2 GDM A- Pt on metformin 1000mg BID with reported fasting BG in 80's and 90's at home. Reports good compliance with medication P- Will get POC glucose and consider continuation of home medication Pre-eclampsia without severe features and hx of HTN A- SBP 152 in room, pt reports it is usually in 130s at appointments. No symptoms at this time and no severe features. Currently on no antihypertensives. P- monitor BPs -no need for Mg or antihypertensives at this time Attending Addendum - Attending Addendum Date/Time: 02/07/18 0759 I personally evaluated the patient and discussed the management with Dr. Muñoz on 02/06/18. I agree with the History, Examination, Assessment and Plan documented above with any addition or exceptions noted below. 32 y.o. at 36.4 weeks EGA with GDM and cHTN with pre-E here for eval of fluid leak. AMnisure negative. SSE mild pool, negative Valsalva and Fern. No PPROM. BPP 01/30. D/C home with IOC at 37.0 wks.
--- NOTE | 2018-02-06 16:21 | PDOC.EVN ---
Event Note - Event Note Event Note: Amnisure negative, sterile spec done with small amount of pooling. Cervix visualization was prohibited due to speculum size and body habitus. When patient was asked to cough, liquid was expressed around the outside of the speculum. When cough again, she did not have any fluid expressed. Fluid sample was put on a slide and visualized under microscope, no ferning. I suspect the fluid the patient has been experiencing has been urine. BPP and growth was performed, 11/28, REESE: 7.0 (7.8 last week) and greatest pocket 4.9cm. NST reactive with >2 accels and no decels, moderate variability, FHT 130s. Most recent BP 132/74. No contractions. OK to d/c home with precautions. Induction scheduled Sunday02/09/18. GBS done here since there was no record at our clinic or with [facility] office and is still pending at time of d/c.
--- NOTE | 2018-02-06 17:45 | ULT ---
ULTRASOUND BIOPHYSICAL PROFILE: Date: 02/06/18 HISTORY: 32-year-old female in third trimester of , with possible macrosomia, measurements greater th an dates. FINDINGS: breathin tone: 2 movement: 2 Amniotic fluid volume: 2 IMPRESSION: Normal biophysical profile score of 8/8, excluding the non-stress test. jn [] POS: [facility]
--- NOTE | 2018-02-06 17:52 | ULT ---
ULTRASOUND OBSTETRICAL COMPLETE: Date: 02/06/18 HISTORY: 32-year-old female in third trimester of , with possible macrosomia, measurements greater th an dates. FINDINGS: number: [place]. lie: Cephalic. Maternal cervix: Obscured by shadowing from the head. Placenta: Left lateral and anterior. No placenta previa. There is a nonspecific 3.5 x 1.5 x 3.5 cm hy poechoic solid structure in the anterior portion of the placenta. It has some blood flow within it. E xact etiology is uncertain. Amniotic fluid volume: REESE = 7.0 cm. heart rate: 136 bpm The following anatomy is visualized, with no evidence of anomalies: Bladder, left kidney, four chamber heart, stomach, and right kidney. The rest of the anatomy is not visualized, due to the third trimester stage of . biometry: Head circumference (HC): 32.2 cm 36w 2d Biparietal diameter (BPD): 9.0 cm 36w 3d Abdominal circumference (AC): 32.6 cm 36w 4d Femur length (FL): 7.1 cm 36w 4d Average ultrasound age (AUA): 36w 3d Estimated date of delivery (SHALONDA): 03/03/2018. Last menstrual period (LMP): 05/26/17. Gestational age by LMP: 36w 4d Estimated weight (EFW): 2955 g +/- 437 g (6 lb 8 oz +/- 15 oz) IMPRESSION: 1. Live third trimester intrauterine gestation. 2. Estimated gestational age of 36 weeks, 3 days. 3. Cephalic lie. 4. Amniotic fluid index 7.0 cm. DAMIAN Freedman
== END 2018-02-06 16:18 | disposition home or self-care (01) ==
LOC: L&D/OP 11:25
PROVIDERS: ATTEND Family Medicine
DX: O99.89 Other specified diseases and conditions complicating pregnancy, childbirth and the puerperium (principal); R39.89 Other symptoms and signs involving the genitourinary system; O11.3 Pre-existing hypertension with pre-eclampsia, third trimester; O10.913 Unspecified pre-existing hypertension complicating pregnancy, third trimester; O24.415 Gestational diabetes mellitus in pregnancy, controlled by oral hypoglycemic drugs; Z3A.36 36 weeks gestation of pregnancy; Z79.84 Long term (current) use of oral hypoglycemic drugs; Z79.899 Other long term (current) drug therapy
CPT/HCPCS: 36416; 76815; 76819; 84112; 87077; 87081; 99284

== ENCOUNTER 2018-02-07 17:33 | Inpatient (IN) | payer MEDICAID ==
[2018-02-07 18:04] VITALS: BMI 40.8
[2018-02-07 18:39] LABS: Amnisure Test RUPTURE DETECTED (No Rupture)
[2018-02-07 18:40] LABS: Amnisure Internal Control QC ACCEPTABLE (ACCEPTABLE)
--- NOTE | 2018-02-07 18:49 | PDOC.LDHP ---
Labor and Delivery H&P Chief complaint: loss of fluid HPI: 32yo @36.5wga by 1TUS presenting for evaluation of ruptured membranes and contractions. Pt reports that this morning she lost her mucus plug as clear fluid with a bloody tinge was discharged. She states she has been joel q5min throughout the day. Pt has history of HTN with superimposed Pre-E diagnosed two weeks ago in the hospital and scheduled for induction in 2d at 37wks. She was also given a full course of steroids during hospitalization 2 weeks ago. She has a hx/o A2GDM controlled with metformin 1000mg BID. No headache/visual disturbances/cp/sob/leg edema or abdominal/RUQ pain other that contractions. Reports good movement, no vaginal bleeding. Pt feels contractions every 5min that are painful 5/10, but otherwise no complaints. Dating criteria: first trimester ultrasound Current complications: gestational diabetes, preeclampsia without severe features Current medications: pre- vitamins, iron Previous surgical history: none Social history: none - Physical Exam Abnormal vital signs: Hypertensive at 146/72 General: NAD, resting Heart: RRR Lungs: nonlabored breathing Abdomen: NTTP Extremeties: no edema FHT: category 1, variability present [place] contractions every: 10 - Vaginal Exam cm dilated: 5 Effacement: 50% Station: -2 - OB Labs Blood type: AB RH: positive Antibody Screen: negative HIV: negative RPR: negative HEPSAg: negative GBS: positive Urine drug screen: negative Rubella: immune - Assessment L&D Assessment: premature rupture of membranes - Plan -: 32 y/o F at 36.5wga per 1st trimester US admitted for PPROM. 1: PPROM: Amnisure Pos. Will admit to L&D. Steroids have been given to her in the previous 2 weeks. Anticipate vaginal delivery. 2. Superimposed Pre-E: Will closely monitor BPs as well as s/s of severe features. Obtain CBC/CMP/urine pro/Cr ratio. 3. A1GDM: initial BG 87. Accuchecks q2hr and will continue to monitor closely. 4. GBS Positive: Will start PCN for GBS prophylaxis <Nabor Solis - Last Filed: 02/07/18 20:05> <Kristine Gay - Last Filed: 02/08/18 02:22> Allergies/Adverse Reactions: Allergies Allergy/AdvReac Type Severity Reaction Status Date / Time No Known Allergies Allergy Verified 02/07/18 17:57 Attending Addendum - Attending Addendum Date/Time: 02/07/18 2350 I personally evaluated the patient and discussed the management with Dr. Solis I agree with the History, Examination, Assessment and Plan documented above with any addition or exceptions noted below. 32 yo female at 36.5 wks by 8.3 wk sono admitted for PPROM now in active labor. Patient reports ROM at 0600 on 02/07/18. Contractions started shortly afterwards and have progressed throughout the day. Denies VB. VS reviewed. Labs reviewed. Cephalic on exam. FHT reactive and cat 1. sIUP: IOB labs, 2T, and 3T labs reviewed. Anatomy reviewed. Continuous monitoring. chTN with superimposed preeclampsia without severe features: Monitor BP close. s /p FLM steroid course. Repeat labs stable. No signs of severe features at this time. Monitor closely. A2GDM: accu checks q 2 hours. Correct with insulin. Keep glucose 60 to 100 during labor. GBS positive: Start PCN. Adriana <Kristine Gay - Last Filed: 02/08/18 02:22>
[2018-02-07] MEDS ORDERED: Penicillin G Potassium 5 MILL.UNITS VIAL ONE (19:30)
[2018-02-07] MEDS ORDERED: Ondansetron PF 4 MG/2 ML Vial IVP PRN ×3 (19:33→22:44)
[2018-02-07] MEDS ORDERED: NS / Oxytocin 40 units/1000ml 1,000 ML IV PRN (19:37)
[2018-02-07] MEDS ORDERED: Lidocaine 1% (PF) 30 ML VIAL SC PRN (19:37)
[2018-02-07] MEDS ORDERED: Penicillin G Potassium 5 MILL.UNITS in Sodium Chloride 0.9% 100 ML IVPB SCH (19:45)
[2018-02-07 19:51] LABS: Hemoglobin 14.5 g/dL (12.0-16.0); Mean Corpuscular HGB CONC 34.6 g/dL (32.0-36.0); Mean Corpuscular Volume 86.7 fL (78.0-98.0); Mean Platelet Volume 7.9 fL (7.4-10.4); Platelet Count 250 thou/uL (130-400); RBC Distribution Width 12.6 % (11.5-14.5); Red Blood Cell (RBC) Count 4.83 mill/uL (4.20-5.40); White Blood Cell (WBC) Count 9.8 thou/uL (4.8-10.8)
[2018-02-07 20:10] LABS: Bilirubin Small (Negative); Blood, Urine Moderate (Negative); Clarity CLEAR (Clear); Glucose, Urine (Dipstick) Negative (Negative); Leukocyte Small (Negative); Nitrite Negative (Negative); Protein, Urine (Dipstick) 30 mg/dL (Neg-Trace); Specific Gravity, Urine 1.042 (1.002-1.036)
[2018-02-07] MEDS ORDERED: Butorphanol Tartrate 1 MG/ML VIAL SLOW IVP PRN (20:12)
[2018-02-07 20:13] LABS: Bacteria/HPF None Seen HPF (None Seen); RBC/HPF 0-3 HPF (0-3); WBC/HPF 0-3 HPF (0-3)
[2018-02-07] MEDS ORDERED: Butorphanol Tartrate 1 MG/ML VIAL ONE (20:13)
[2018-02-07 20:17] LABS: Pathc Cast-AUWi Flag 2.76 (0-2.49)
[2018-02-07 20:18] LABS: ALT (SGPT) 13 U/L (8-55); AST (SGOT) 14 U/L (5-34); Albumin 3.6 g/dL (3.5-5.0); Alkaline Phosphatase 158 U/L (40-150); Anion Gap 14 mmol/L (10-20); BUN (Urea Nitrogen) 15 mg/dL (7.0-18.7); Bilirubin, Total 0.5 mg/dL (0.2-1.2); Calc. Creatinine Clearance 183 mL/min (70-130); Calcium 9.6 mg/dL (7.8-10.44); Carbon Dioxide 18 mmol/L (22-29); Chloride 110 mmol/L (98-107); Estimated GFR-MDRD Greater than 90; Globulin 2.9 g/dL (2.4-3.5); Glucose 93 mg/dL (70-105); Potassium 4.2 mmol/L (3.5-5.1); Protein, Total 6.5 g/dL (6.0-8.3); Sodium 138 mmol/L (136-145)
[2018-02-07 20:20] LABS: Band 3 % (5-11); Lymphocytes 15 % (21-51); MDiff Complete? YES; Monocytes 3 % (0-10); Neutrophil 72 % (42-75); PLT Morphology Comment Appears Adequate; RBC Morphology Normal; Reactive Lymphocytes 7 % (0-10)
[2018-02-07 20:23] LABS: Hyaline Casts/LPF 0-3 HYALINE CAST LPF (0-3 Hyaline); Other Casts/LPF None Seen LPF (0-3 Hyaline)
[2018-02-07] MEDS ORDERED: Dextrose 50% Abboject 50 ML SYRINGE SLOW IVP PRN (20:38)
[2018-02-07] MEDS ORDERED: Dextrose 5% in Water 1,000 ML IV PRN (20:38)
[2018-02-07] MEDS ORDERED: HumaLOG 300 UNITS/3 ML VIAL SC PRN (20:38)
[2018-02-07 20:51] LABS: Syphilis Antibody Nonreactive (Nonreactive); Syphilis Antibody Index 0.04 S/CO (<1.00 Non-Reactive)
[2018-02-07] MEDS ORDERED: Penicillin G 2.5 MILL.units 2.5 MILL.UNITS in Premix Bag 1 BAG IVPB SCH (21:00)
--- NOTE | 2018-02-07 21:09 | PDOC.LDPN ---
Labor & Delivery Progress Note - Subjective Subjective: comfortable, painful contractions, loss of fluid - Objective Vital signs reviewed and normal: yes General: NAD Dilation: 6 Effacement: 100% Station: 0 FHT: category 1 [place] contractions every: 5-6 minutes - Assessment (1) and not yet delivered in third trimester Code(s): Z34.93 - ENCNTR FOR SUPRVSN OF NORMAL PREG, UNSP, THIRD TRIMESTER Current Visit: Yes Status: Acute (2) Gestational diabetes mellitus (GDM) Code(s): O24.419 - GESTATIONAL DIABETES MELLITUS IN , UNSP CONTROL Current Visit: No Status: Acute Qualifiers: Gestational diabetes mellitus control: oral hypoglycemic-controlled Trimester: third trimester Qualified Code(s): O24.415 - Gestational diabetes mellitus in , controlled by oral hypoglycemic drugs (3) Pre-eclampsia added to pre-existing hypertension Code(s): O11.9 - PRE-EXISTING HYPERTENSION WITH PRE-ECLAMPSIA, UNSP TRIMESTER Current Visit: No Status: Acute (4) premature rupture of membranes Code(s): O42.919 - PRETRM BART ROM, UNSP TIME BETW RUPT AND ONST LABR, UNSP TRI Current Visit: No Status: Acute Qualifiers: PROM onset of labor timing: onset of labor within 24 hours of rupture Qualified Code(s): O42.019 - premature rupture of membranes, onset of labor within 24 hours of rupture, unspecified trimester Plan: continue plan of care -: 32 yo @ 36.5wks by 8.3wk sono admitted for PPROM. #sIUP- -continue labor checks q2h; pt progressing well on her own; GBS +, continue PCN #PPROM -amnisure positive, continue labor checks every 2 hours #GMD, A2, controlled -continue metformen 1000mg BID, accuchecks q2h, sliding scale insulin prn #Chronic HTN with superimposed preE without severe features -bp q 15 minutes; preE labs repeated and no signs of severe features, labetalol prn. Continue to monitor. <Lashonda Lee - Last Filed: 02/08/18 03:33> Attending Addendum - Attending Addendum Date/Time: 02/08/18 7788 I personally evaluated the patient and discussed the management with Dr. Lee I agree with the History, Examination, Assessment and Plan documented above with any addition or exceptions noted below. 32 yo female at 36.5 wks Progressing well. Cat 1 tracing. Tolerating contractions well. BP mild to normotensive. Asymptomatic. Labs without evidence of severe features. No mag indicated at this time. Glucose stable. No need for insulin. Receiving PCN for GBS status. PPROM at 0600 on 02/07/18. Now PTL x2. DamarisMD <Kristine Gay - Last Filed: 02/08/18 03:50>
[2018-02-07] MEDS ORDERED: Lidocaine 1% (PF) 30 ML VIAL ONE (21:43)
[2018-02-07] MEDS ORDERED: Misoprostol 200 MCG TAB ONE (22:10)
[2018-02-07] MEDS ORDERED: Adacel (T-DAP) 0.5 ML VIAL IM ONE (22:44)
[2018-02-07] MEDS ORDERED: Benzocaine/Menthol 20-0.5% 60 ML CAN TOP PRN (22:44)
[2018-02-07] MEDS ORDERED: Bisacodyl 10 MG SUPP PR PRN (22:44)
[2018-02-07] MEDS ORDERED: Lanolin Ointment 7 GM TUBE TOP PRN (22:44)
[2018-02-07] MEDS ORDERED: Preparation H Ointment 28 GM TUBE PR PRN (22:44)
[2018-02-07] MEDS ORDERED: HYDROcodone/Acetaminophen 5/325 mg Tablet PO PRN ×2 (22:44)
[2018-02-07] MEDS ORDERED: Milk Of Magnesia 30 ML UDCUP PO PRN (22:44)
[2018-02-07] MEDS ORDERED: NS / Oxytocin 40 units/1000ml 1,000 ML IV SCH (22:45)
[2018-02-07 23:39] LABS: HBSAg Index 0.15 S/CO (0-0.99); HIV (1/2) Antibody/Antigen Non-Reactive (NonReactive); HIV 1/2 INDEX 0.11 S/CO (<1.00); Hep B Surf Ag Non-Reactive S/CO (NonReactive)
[2018-02-08] MEDS ORDERED: Misoprostol 200 MCG TAB PR SCH (00:30)
[2018-02-08] MEDS ORDERED: Magnesium Sulfate 20 gm/500 ml 20 GM/500 ML BAG ONE (00:57)
[2018-02-08] MEDS ORDERED: Magnesium Sulfate 20 GM/WATER 500 ML BAG IVPB SCH (01:00)
[2018-02-08] MEDS ORDERED: Ondansetron PF 4 MG/2 ML Vial IVP PRN (01:00)
[2018-02-08] MEDS ORDERED: Calcium Gluconate 4.6 MEQ in Sodium Chloride 0.9% 100 ML IVPB PRN (01:00)
[2018-02-08] MEDS ORDERED: Preparation H Ointment 28 GM TUBE PR PRN (01:00)
[2018-02-08] MEDS ORDERED: diphenhydrAMINE 25 MG CAP PO PRN (01:00)
[2018-02-08] MEDS ORDERED: NS / Oxytocin 40 units/1000ml 1,000 ML IV SCH (01:00)
[2018-02-08] MEDS ORDERED: Lanolin Ointment 7 GM TUBE TOP PRN (01:00)
[2018-02-08] MEDS ORDERED: Benzocaine/Menthol 20-0.5% 60 ML CAN TOP PRN (01:00)
[2018-02-08] MEDS ORDERED: Milk Of Magnesia 30 ML UDCUP PO PRN (01:00)
[2018-02-08] MEDS ORDERED: Bisacodyl 10 MG SUPP PR PRN (01:00)
[2018-02-08] MEDS: HYDROcodone/Acetaminophen 5/325 mg Tablet PO PRN ×5 (01:12→21:55)
[2018-02-08] MEDS: Magnesium Sulfate 20 gm/500 ml 20 GM/500 ML BAG IVPB SCH ×3 (01:20→19:22)
--- NOTE | 2018-02-08 03:39 | PDOC.OPDEL ---
OB Operative/Delivery Note Delivery Dr/Surgeon: Brandt Chopra Bray Pre-Delivery Diagnosis: other (PPROM, active labor, GDM A2, Chronic HTN with superimposed preE without severe features) Procedure/Post Delivery Dx: spontaneous vaginal delivery Weeks gestation: 36 (36.5) Anesthesia: none - Findings A Sex: female - 1 min: 8 - 5 min: 9 - Additional Findings/Plan Placenta delivered: spontaneous Repaired Obstetrical Laceration: none Compilations/Other Findings: Delivering Physician: Brandt Lee Attending: Victor Hugo Procedure: Spontaneous Vaginal Delivery Anesthesia: none EBL: 623 ml Pre-op Diagnosis: 1. Pre-term intrauterine in labor 2. PPROM 3. Gestation Diabetes, A2 4. Chronic hypertension with superimposed preE without severe features Post-op Diagnosis: 1. Pre-term intrauterine , delivered 2. PPROM 3. Gestation Diabetes, A2 4. Chronic hypertension with superimposed preE without severe features Indications: A 32 y/o female now [id number] presents in PPROM admitted to L& D. Delivery Note: This is 32yo F @ 36.5wks by 8.3 wk sono who delivered a viable F infant at 2206. Following admission for PPROM a vigorous female infant was delivered over an intact perineum in the occipitoanterior position. Anterior Shoulder and then remainder of the body delivered. No nuchal cord. The head was held down and mouth and nares were bulb suctioned. Cord clamped ( after delayed cord clamping) and cut and cord blood collected. Placenta delivered intact with a 3 vessel cord noted. Fundal massage was performed and the fundus was firm. Mild hemorrhage occurred and pt received 800mcg of cytotec VT and vigorous bimanual massage was performed, followed by good hemostasis. The cervix and vagina were inspected and found to be free of lacerations. Infant went to nursery in good condition for routine care. Apgars were 8/9 at 1 & 5 minutes, respectively. Patient tolerated delivery well, however became hypertensive with severe range pressures following delivery and magnesium was started. Pt went to LICU for close monitoring during recovery. <Lashonda Lee - Last Filed: 02/08/18 03:41> - Additional Findings/Plan Compilations/Other Findings: I was present and participated the the above documented procedure. Uncomplicated . Brisk bleeding controlled with bimanual massage, miso 800 mcg VT and pitocin infusion. No lacerations noted. Female with APGARs 8/ 9. Transfered to for routine care. Monitor BP closely for evidence of severe range pressures. Adriana <Kristine Gay - Last Filed: 02/11/18 10:02>
--- NOTE | 2018-02-08 03:55 | PDOC.PP ---
Post Progress Note Post Day #: 0 Subjective: 32 yo s/p on 02/07/18 at 2206 to a female . After delivery, mom has several severe range blood pressures, warranting us starting magnesium. Since starting magnesium most recent bp was 134/63. However, pt did complain of a headache as well. Pt was kept in the LICU for recovery. PO intake tolerated: no Flatus: no Ambulation: no Vital Signs (12 hours) Temp Pulse Resp BP 02/07/18 19:34 98.5 F 78 20 144/71 H Weight Weight 97.976 kg - Physical Examination General: NAD Cardiovascular: no m/r/g, RRR Respiratory: clear to auscultation bilaterally Neurological: no gross focal deficits Psychiatric: A&Ox3, normal affect Result Diagrams: 02/07/18 19:30 02/07/18 19:30 Additional Labs: Post Labs Blood Type AB POSITIVE 02/07/18 19:30 Hep Bs Antigen Non-Reactive S/CO (NonReactive) 02/07/18 19:30 (2) Gestational diabetes mellitus (GDM) Code(s): O24.419 - GESTATIONAL DIABETES MELLITUS IN , UNSP CONTROL Status: Acute Qualifiers: Gestational diabetes mellitus control: oral hypoglycemic-controlled Trimester: third trimester Qualified Code(s): O24.415 - Gestational diabetes mellitus in , controlled by oral hypoglycemic drugs (3) Pre-eclampsia added to pre-existing hypertension Code(s): O11.9 - PRE-EXISTING HYPERTENSION WITH PRE-ECLAMPSIA, UNSP TRIMESTER Status: Acute (4) premature rupture of membranes Code(s): O42.919 - PRETRM BART ROM, UNSP TIME BETW RUPT AND ONST LABR, UNSP TRI Status: Acute Qualifiers: PROM onset of labor timing: onset of labor within 24 hours of rupture Qualified Code(s): O42.019 - premature rupture of membranes, onset of labor within 24 hours of rupture, unspecified trimester (5) and not yet delivered in third trimester Code(s): Z34.93 - ENCNTR FOR SUPRVSN OF NORMAL PREG, UNSP, THIRD TRIMESTER Status: Acute - Assessment/Plan 32 yo @ 36.5wks by 8.3wk sono admitted for PPROM, s/p on 02/07/18 at 2206. #sIUP, delivered -Pt spiked several severe range blood pressures, and as a results we started magnesium on her. A kuo was placed and we will do serial magnesium tox checks. -GBS positive, not adequately treated. #GMD, A2 -dc metformen #Chronic HTN with superimposed preE without severe features -bp q30 minutes; labetalol prn. Magnesium started. Continue to monitor. <Lashonda Lee - Last Filed: 02/08/18 03:56> Weight Weight 97.976 kg Result Diagrams: 02/07/18 19:30 02/07/18 19:30 Additional Labs: Post Labs Blood Type AB POSITIVE 02/07/18 19:30 Hep Bs Antigen Non-Reactive S/CO (NonReactive) 02/07/18 19:30 <Kristine Gay - Last Filed: 02/11/18 10:08> Attending Addendum - Attending Addendum Date/Time: 02/08/18 0403 I personally evaluated the patient and discussed the management with Dr. Lee I agree with the History, Examination, Assessment and Plan documented above with any addition or exceptions noted below. 32 yo s/p at 36.5 wks on 02/07/18 at 2206 complicated by PPROM with PTD, hx of PTD, cHTN with superimposed preE now with severe features, A2GDM 1. s/p : Routine pp care 2. PPROM with PTD: Will need to discuss use of 17-OHP with next . Hx of previous PTD also. Refused 17 - OHP this 3. A2GDM: Needs 2 hour gtt at 6 wk pp visit 4. cHTN now with superimposed preE with severe features: Severe range BP with headache. Labs WNL. Continue mag at least 24 hours after delivery. Monitor for mag tox. Treat severe range BP. ABrayMD <Kristine Gay - Last Filed: 02/11/18 10:08>
[2018-02-08] MEDS: Labetalol HCl 100 MG/20 ML VIAL SLOW IVP PRN (04:57)
--- NOTE | 2018-02-08 05:10 | PDOC.PP ---
Post Progress Note Post Day #: 1 Subjective: 32 yo s/p on 02/07/18 at 2206 to a female . Mom currently on magnesium with three severe range bp's in the 160s. Pt given Labetalol 20mg IV X1. Pt denies headache currently. PO intake tolerated: no Flatus: no Ambulation: no Vital Signs (12 hours) Temp Pulse Resp BP BP 02/08/18 04:57 76 178/84 H 02/07/18 19:34 98.5 F 78 20 144/71 H Weight Weight 97.976 kg - Physical Examination General: NAD Cardiovascular: RRR Respiratory: non-labored breathing Abdominal: appropriately TTP Deviation from normal: Patellar reflex wnl Psychiatric: A&Ox3 Deviation from normal: adequate UOP Result Diagrams: 02/07/18 19:30 02/07/18 19:30 Additional Labs: Post Labs Blood Type AB POSITIVE 02/07/18 19:30 Hep Bs Antigen Non-Reactive S/CO (NonReactive) 02/07/18 19:30 (1) and not yet delivered in third trimester Code(s): Z34.93 - ENCNTR FOR SUPRVSN OF NORMAL PREG, UNSP, THIRD TRIMESTER Status: Acute (2) Gestational diabetes mellitus (GDM) Code(s): O24.419 - GESTATIONAL DIABETES MELLITUS IN , UNSP CONTROL Status: Acute Qualifiers: Gestational diabetes mellitus control: oral hypoglycemic-controlled Trimester: third trimester Qualified Code(s): O24.415 - Gestational diabetes mellitus in , controlled by oral hypoglycemic drugs (3) Pre-eclampsia added to pre-existing hypertension Code(s): O11.9 - PRE-EXISTING HYPERTENSION WITH PRE-ECLAMPSIA, UNSP TRIMESTER Status: Acute (4) premature rupture of membranes Code(s): O42.919 - PRETRM BART ROM, UNSP TIME BETW RUPT AND ONST LABR, UNSP TRI Status: Acute Qualifiers: PROM onset of labor timing: onset of labor within 24 hours of rupture Qualified Code(s): O42.019 - premature rupture of membranes, onset of labor within 24 hours of rupture, unspecified trimester - Assessment/Plan 32 yo @ 36.5wks by 8.3wk ayanao admitted for PPROM, s/p on 02/07/18 at 2206. POD #1 #sIUP, delivered -Pt on magnesium 2/2 several severe range bp's post delivery. Pt has adequate UOP and no other signs of mag toxicity currently. She had 3 bp's in the 160s and was given one dose of 20mg IV of labetalol. Will continue to monitor bp's closely. No other s/s of severe features at this time. -GBS positive, not adequately treated. #GMD, A2 -dc metformen #Chronic HTN with superimposed preE with severe features (systolic bp>160) -bp q30 minutes; labetalol prn. Magnesium started. Continue to monitor. See above.
[2018-02-08] MEDS ORDERED: Ferrous Sulfate 325 MG TAB PO SCH (08:00)
[2018-02-08] MEDS ORDERED: Docusate Calcium (SURFAK) 240 MG CAP PO SCH (09:00)
[2018-02-08] MEDS ORDERED: Prenatal Vitamin 1 TAB PO SCH ×2 (09:00)
--- NOTE | 2018-02-08 09:26 | PDOC.EVN ---
Event Note - Event Note Event Note: Pt reports feeling well with no complaints. No headache/cp/sob/abd pain/visual disturbance. BP 126/78 GEN: no acute distress CARD: RRR no murmur PULM: CTAB, no wheezing GI: normal BS NUERO: +2 DTRs bilat (patellar, biceps) Urine: nurse reports adequate production. Will quantify at 10am. A/P -32 yo s/p on 02/07/18 at 2206 to a female infant. -continue mag -mag checks q4hr
[2018-02-08] MEDS: Docusate Calcium (SURFAK) 240 MG CAP PO SCH ×2 (10:50→21:25)
[2018-02-08] MEDS: Ferrous Sulfate 325 MG TAB PO SCH ×2 (10:50→21:25)
[2018-02-08] MEDS: Prenatal Vitamin 1 TAB PO SCH (10:51)
--- NOTE | 2018-02-08 15:30 | PDOC.EVN ---
Event Note - Event Note Event Note: Patient reports having a bit of a headache and mid-sternal chest pressure. BP 122/72 HR: 76 GEN: NAD CARD: RRR no m/g/r PULM: CTAB, no wheezing GI: normal BS NUERO: +2 DTRs (patellar and biceps) Urine: 200ml/hr A/P -32 yo s/p on 02/07/18 at 2206 to a female . -continue mag -tylenol for LEON -mag checks q4hr
[2018-02-08] MEDS ORDERED: Acetaminophen 500 MG TAB PO SCH (15:45)
--- NOTE | 2018-02-08 20:06 | PDOC.EVN ---
Event Note - Event Note Event Note: Patient sleeping comfortably in room. Denies CP, SOB, CP. Does still have LEON. She did have a couple elevated BP, highest 148/79 at 17:00. Most recent listed below. BP 126/58 HR: 75 GEN: NAD CARD: RRR no m/g/r PULM: CTAB, no wheezing GI: normal BS NUERO: +2 DTRs (biceps) decreased DTR in patella Urine: 1000ml in the past hour A/P -32 yo s/p on 02/07/18 at 2206 to a female infant. -continue mag -mag checks q4hr
[2018-02-09] MEDS: HYDROcodone/Acetaminophen 5/325 mg Tablet PO PRN ×2 (02:06→21:23)
--- NOTE | 2018-02-09 06:31 | PDOC.PP ---
Post Progress Note Post Day #: 2 Subjective: 32 yo s/p on 02/07/18 at 2206 to a female . Mom s/p magnesium after several days of severe range bp's in the 160s. BPs did improve and magnesium was removed around 0100. Pt currently denies LEON or vision changes. One severe range pressure recorded this AM and LAbetalol given. Weight Weight 97.976 kg - Physical Examination General: NAD Cardiovascular: no m/r/g, RRR Respiratory: clear to auscultation bilaterally, non-labored breathing Abdominal: + bowel sounds, lochia, no distention, appropriately TTP Neurological: no gross focal deficits Psychiatric: A&Ox3, normal affect Result Diagrams: 02/07/18 19:30 02/07/18 19:30 Additional Labs: Post Labs Blood Type AB POSITIVE 02/07/18 19:30 Hep Bs Antigen Non-Reactive S/CO (NonReactive) 02/07/18 19:30 (1) care following vaginal delivery Code(s): Z39.2 - ENCOUNTER FOR ROUTINE FOLLOW-UP Status: Acute (2) Gestational diabetes mellitus (GDM) Code(s): O24.419 - GESTATIONAL DIABETES MELLITUS IN , UNSP CONTROL Status: Acute Qualifiers: Gestational diabetes mellitus control: oral hypoglycemic-controlled Trimester: third trimester Qualified Code(s): O24.415 - Gestational diabetes mellitus in , controlled by oral hypoglycemic drugs (3) Pre-eclampsia added to pre-existing hypertension Code(s): O11.9 - PRE-EXISTING HYPERTENSION WITH PRE-ECLAMPSIA, UNSP TRIMESTER Status: Acute - Assessment/Plan 32 yo @ 36.5wks by 8.3wk sono admitted for PPROM, s/p on 02/07/18 at 2206. PPD #2 #sIUP, delivered -S/P magnesium 2/2 several severe range bp's post delivery. UOP has been adequate w/o other signs of mag toxicity. Given one PP dose of 20mg IV of labetalol. No other s/s of severe features at this time. -GBS positive, not adequately treated. - Bleeding minimal, afebrile, passing flatus, and had BM. Pain managed well. #GMD, A2 -resolved, will need close f/u #Chronic HTN with superimposed preE with severe features (systolic bp>160) - Much improved pressures until this AM when she recorded a severe range pressure. Will consider PO medication and will continue to monitor. Will discuss with Dr Cook and develop a plan. -bp per protocol; labetalol prn. Continue to monitor.
[2018-02-09] MEDS: Labetalol HCl 100 MG/20 ML VIAL SLOW IVP PRN (07:05)
[2018-02-09] MEDS ORDERED: metFORMIN 500 MG TAB PO SCH (08:00)
[2018-02-09] MEDS ORDERED: Amlodipine 10 MG TAB PO SCH (09:45)
[2018-02-09] MEDS: Docusate Calcium (SURFAK) 240 MG CAP PO SCH ×2 (12:04→21:23)
[2018-02-09] MEDS: Prenatal Vitamin 1 TAB PO SCH (12:04)
[2018-02-09] MEDS: Ferrous Sulfate 325 MG TAB PO SCH ×2 (12:05→15:35)
[2018-02-10] MEDS: HYDROcodone/Acetaminophen 5/325 mg Tablet PO PRN (05:12)
[2018-02-10 06:51] VITALS: TEMP 98.3
[2018-02-10 08:39] VITALS: BP 142/68
[2018-02-10] MEDS ORDERED: Amlodipine 10 MG TAB PO SCH (09:00)
--- NOTE | 2018-02-10 09:03 | PDOC.PP ---
Post Progress Note Post Day #: 3 Subjective: 32 yo s/p on 02/07/18 at 2206 to a female . Mom s/p magnesium for 24 hours after delivery d/t several severe range blood pressures post delivery. BP's controlled overnight without requiring any prns of labetalol. PO intake tolerated: yes Flatus: yes Ambulation: yes Vital Signs (12 hours) Temp Pulse Resp BP BP Pulse Ox 02/10/18 08:37 98.3 F 65 142/68 H 98 02/10/18 08:05 98 02/10/18 06:30 98.3 F 71 18 130/73 98 Weight Weight 97.976 kg - Physical Examination General: NAD Cardiovascular: no m/r/g, RRR Respiratory: clear to auscultation bilaterally Abdominal: lochia (minimal clots), appropriately TTP Fundus firm & at: umbilicus Neurological: no gross focal deficits Psychiatric: A&Ox3, normal affect Result Diagrams: 02/07/18 19:30 02/07/18 19:30 Additional Labs: Post Labs Blood Type AB POSITIVE 02/07/18 19:30 Hep Bs Antigen Non-Reactive S/CO (NonReactive) 02/07/18 19:30 (1) delivery, delivered Code(s): O60.10X0 - LABOR W DELIVERY, UNSP TRIMESTER, UNSP Status: Acute (2) Gestational diabetes mellitus (GDM) Code(s): O24.419 - GESTATIONAL DIABETES MELLITUS IN , UNSP CONTROL Status: Acute Qualifiers: Gestational diabetes mellitus control: oral hypoglycemic-controlled Trimester: third trimester Qualified Code(s): O24.415 - Gestational diabetes mellitus in , controlled by oral hypoglycemic drugs (3) Pre-eclampsia added to pre-existing hypertension Code(s): O11.9 - PRE-EXISTING HYPERTENSION WITH PRE-ECLAMPSIA, UNSP TRIMESTER Status: Acute (4) premature rupture of membranes Code(s): O42.919 - PRETRM BART ROM, UNSP TIME BETW RUPT AND ONST LABR, UNSP TRI Status: Acute Qualifiers: PROM onset of labor timing: onset of labor within 24 hours of rupture Qualified Code(s): O42.019 - premature rupture of membranes, onset of labor within 24 hours of rupture, unspecified trimester - Assessment/Plan 32 yo @ 36.5wks by 8.3wk rasheed admitted for PPROM, s/p on 02/07/18 at 2206. PPD #3 #sIUP, delivered -continue routine care, mom is ambulating, tolerating normal diet, voiding/stooling adequately, appropriately tender on exam, minimal clots/ bleeding. -tylenol/norco prn pain d/t severe range blood pressures post delivery; however pt complaining of minimal pain. #GBS positive, not adequately treated. #GMD, A2 -resolved, will need follow-up in 1-2weeks #Chronic HTN with superimposed preE with severe features (systolic bp>160) -S/P magnesium for 24 hours 2/2 several severe range bp's post delivery. Magnesium dc'd Friday 02/09 @ 2200. BP's controlled overnight. No s/s of severe features. However, bp's in the 130s-140s with two severe range bp's yesterday am. Will consider dc with 100mg Labetalol BID. -Labetalol prn. Continue to monitor. dispo: likely dc today; since bp's controlled recommend follow-up in one week for bp check
[2018-02-10] MEDS: Prenatal Vitamin 1 TAB PO SCH (09:44)
[2018-02-10] MEDS: Ferrous Sulfate 325 MG TAB PO SCH (09:45)
[2018-02-10] MEDS: Docusate Calcium (SURFAK) 240 MG CAP PO SCH (09:45)
[2018-02-10] MEDS ORDERED: Ibuprofen 800 MG TAB PO SCH (11:15)
== END 2018-02-10 13:25 | disposition home or self-care (01) | DRG 805 ==
LOC: L&D/OP 17:33 → L&D 19:32 → 3SW 02-09 15:10
PROVIDERS: ADMIT Family Medicine; ATTEND Family Medicine
PROC: 10E0XZZ Delivery of Products of Conception, External Approach (ICD-10-PCS; principal; 2018-02-07)
DX: O24.429 Gestational diabetes mellitus in childbirth, unspecified control (principal); O60.14X0 Preterm labor third trimester with preterm delivery third trimester, not applicable or unspecified; Z37.0 Single live birth; O13.3 Gestational [pregnancy-induced] hypertension without significant proteinuria, third trimester; O99.820 Streptococcus B carrier state complicating pregnancy; Z3A.36 36 weeks gestation of pregnancy; O42.913 Preterm premature rupture of membranes, unspecified as to length of time between rupture and onset of labor, third trimester
CPT/HCPCS: 36415; 36416; 76815; 76819; 80053; 81003; 81015; 82247; 82570; 84112; 84156; 85007; 85027; 86780; 86850; 86900; 86901; 87077; 87081; 87340; 87389; 99284; 99285; J0595; J2001; J2540; J3475

== ENCOUNTER 2018-08-21 19:05 | Emergency (ER) | payer SELFPAY | END 2018-08-21 20:38 | disposition left against medical advice (07) | LOC: ERS 19:05 | DX: Z53.21 Procedure and treatment not carried out due to patient leaving prior to being seen by health care provider (principal) ==

== ENCOUNTER 2018-09-04 13:45 | Outpatient (CLI) | payer MEDICAID ==
--- NOTE | 2018-09-04 14:32 | ULT ---
Exam: Transabdominal and endovaginal pelvic ultrasound HISTORY:Disorder of the ovary. COMPARISON: 06/19/2017 TECHNIQUE: Transabdominal and endovaginal imaging of the pelvis is performed. O varies are interrogated with grayscale, color flow, Doppler imaging and spectral wave form analysis FINDINGS: Uterus: Intrauterine device is noted. 2 hypoechoic foci in the anterior uterus measuring 0.7 x 0.9 x 1.2 cm and 1.1 x 1.2 x 1.2 cm. Anechoic focus in the posterior uterine myometrium measuring 0.7 x 0.6 x 0.8 cm. Uterus measurin.8 x 6.7 x 6.2 cm. Endometrium: Intrauterine device. Limited evaluation endometrium. Endometrium diameter: 1.4 cm cm. . Free fluid: None Left ovary: Normal echotexture. Left ovary measurements: 3.1 x 1.5 x 1.7 cm Right ovary: Normal echotexture Right ovary measurement: 1.2 x 1.3 x 2.3 cm Ovarian Doppler: There is vascular flow to the left and right ovary. IMPRESSION: 1. Intrauterine device within the endometrium 2. 2 separate hypoechoic and a single anechoic focus in the myometrium. Findings may represent a uter ine leiomyoma in the anterior myometrium and possible cystic degeneration in the posterior myometrium. Better interrogation with pelvic MRI is recommended
== END 2018-09-04 13:46 | disposition home or self-care (01) ==
LOC: BICULT 13:45
PROVIDERS: ATTEND Family Medicine
DX: N83.9 Noninflammatory disorder of ovary, fallopian tube and broad ligament, unspecified (principal); R93.89 Abnormal findings on diagnostic imaging of other specified body structures; Z97.5 Presence of (intrauterine) contraceptive device
CPT/HCPCS: 76856

== ENCOUNTER 2020-03-22 17:00 | Inpatient (IN) | payer OTHER ==
[~2020-03-22 17:00] MED LIST: Bupivacaine 0.25% HCL 30 ML VIAL ONE
[2020-03-22] MEDS ORDERED: Misoprostol 200 MCG TAB PR PRN (17:13)
[2020-03-22] MEDS ORDERED: Butorphanol Tartrate 1 MG/ML VIAL SLOW IVP PRN (17:13)
[2020-03-22] MEDS ORDERED: Acetaminophen 500 MG TAB PO PRN (17:13)
[2020-03-22] MEDS ORDERED: Diphenoxylate HCl/Atropine Tablet PO PRN ×2 (17:13)
[2020-03-22] MEDS ORDERED: Lidocaine 1% (PF) 30 ML VIAL SC PRN (17:13)
[2020-03-22] MEDS ORDERED: HYDROcodone/Acetaminophen 5/325 mg Tablet PO PRN (17:13)
[2020-03-22] MEDS ORDERED: Promethazine HCl 25 MG/ML VIAL IM PRN ×2 (17:13→23:42)
[2020-03-22] MEDS ORDERED: NS / Oxytocin 40 units/1000ml 1,000 ML IV PRN (17:13)
[2020-03-22] MEDS ORDERED: Ibuprofen 800 MG TAB PO PRN (17:13)
[2020-03-22] MEDS ORDERED: Carboprost 250 MCG/ML AMP IM PRN (17:13)
--- NOTE | 2020-03-22 17:22 | PDOC.LDHP ---
Labor and Delivery H&P Chief complaint: scheduled induction HPI: 35 y/o at 38 weeks presents 5 hours after being sent to L&D immediately form clinic for severe range BP. She states her had "some things he needed to finish first." Medically indicated induction of labor at 38 weeks was scheduled originally for tomorrow. Patient states she hasn't taken her BP medication in over 48 hours because "she ran out" but didn't think to contact the office over the weekend or leave us a message. In clinic, BPP was 8/8, and NST was reactive. Cervix in clinic was 4/60/-2 today and very favorable. Furthermore, the patient has skipped her pre-admission COVID screening last week, but did not provide us a reason why. We will offer COVID testing today. Current gestational age (weeks): 38 Grav: 6 Para: 5 Current complications: hypertension Abnormal US findings: No Current medications: pre-reyes vitamins, other (Labetolol 200mg po BID) Allergies/Adverse Reactions: Allergies Allergy/AdvReac Type Severity Reaction Status Date / Time No Known Allergies Allergy Verified 02/07/18 17:57 Social history: none - Physical Exam Vital signs reviewed and normal: yes General: NAD, resting Heart: RRR Lungs: CTAB Abdomen: gravid Extremeties: no edema FHT: category 1 - Vaginal Exam cm dilated: 4 Effacement: 50% Station: -2 - Assessment L&D Assessment: medically indicated induction - Plan Plan: admit to L&D, labor augmentation if indicated
[2020-03-22 17:45] VITALS: BMI 37.8
[2020-03-22] MEDS: Lactated Ringer's 1,000 ML IV SCH (17:59)
[2020-03-22] MEDS ORDERED: Labetalol 100 MG TAB PO SCH (18:00)
[2020-03-22] MEDS: hydrALAZINE 20 MG/ML VIAL SLOW IVP PRN ×3 (18:07→22:29)
[2020-03-22 18:22] LABS: Hemoglobin 13.4 g/dL (12.0-16.0); Mean Corpuscular HGB CONC 33.9 g/dL (32.0-36.0); Mean Corpuscular Hemoglobin 28.9 pg (27.0-31.0); Mean Corpuscular Volume 85.2 fL (78.0-98.0); Mean Platelet Volume 7.8 fL (7.4-10.4); Platelet Count 277 thou/uL (130-400); RBC Distribution Width 13.6 % (11.5-14.5); Red Blood Cell (RBC) Count 4.62 mill/uL (4.20-5.40); White Blood Cell (WBC) Count 8.4 thou/uL (4.8-10.8)
[2020-03-22] MEDS ORDERED: hydrALAZINE 20 MG/ML VIAL ONE ×2 (18:30→22:11)
[2020-03-22 18:41] LABS: ALT (SGPT) 25 U/L (8-55); AST (SGOT) 23 U/L (5-34); Albumin 3.6 g/dL (3.5-5.0); Alkaline Phosphatase 165 U/L (40-110); Anion Gap 16 mmol/L (10-20); BUN (Urea Nitrogen) 11 mg/dL (7.0-18.7); Bilirubin, Total 0.4 mg/dL (0.2-1.2); Calc. Creatinine Clearance 167 mL/min (70-130); Calcium 9.4 mg/dL (7.8-10.44); Carbon Dioxide 19 mmol/L (22-29); Chloride 107 mmol/L (98-107); Estimated GFR-MDRD Greater than 90; Globulin 2.9 g/dL (2.4-3.5); Glucose 94 mg/dL (70-105); Protein, Total 6.5 g/dL (6.0-8.3); Sodium 138 mmol/L (136-145)
[2020-03-22 18:58] LABS: HBSAg Index 0.22 S/CO (0-0.99); Hep B Surf Ag Non-Reactive S/CO (NonReactive)
[2020-03-22 18:59] LABS: Syphilis Antibody Nonreactive (Nonreactive); Syphilis Antibody Index 0.04 S/CO (<1.00 Non-Reactive)
[2020-03-22] MEDS ORDERED: Labetalol HCl 100 MG/20 ML VIAL ONE (18:59)
[2020-03-22 19:14] LABS: Amphetamine Not Detected (NotDetected); Barbiturates Screen Not Detected (NotDetected); Benzodiazepine Screen Not Detected (NotDetected); Cocaine Metabolite Screen Not Detected (NotDetected); Medtox Control Line Valid? VALID (VALID); Medtox Reader # READER 4; Methadone Not Detected (NotDetected); Methamphetamine Not Detected (NotDetected); Opiate Screen Not Detected (NotDetected); Oxycodone Screen Not Detected (NotDetected); Phencyclidine (PCP) Not Detected (NotDetected); THC/Cannabinoid Screen Not Detected (NotDetected); Tricyclic Screen Not Detected (NotDetected)
[2020-03-22 19:49] LABS: Creatinine, Urine 68.95 mg/dL (47-110)
[2020-03-22] MEDS: Labetalol HCl 100 MG/20 ML VIAL SLOW IVP SCH (20:07)
[2020-03-22] MEDS: Magnesium Sulfate 20 gm/500 ml 20 GM/500 ML BAG ONE ×2 (20:28→20:31)
[2020-03-22] MEDS: Calcium Carbonate 500 MG ChewTAB PO SCH ×2 (20:58→23:30)
[2020-03-22] MEDS ORDERED: Bupivacaine 0.5% 20 ML, fentaNYL Citrate/PF 400 MCG in Sodium Chloride 0.9% 72 ML EPIDURAL SCH (22:45)
[2020-03-22] MEDS ORDERED: DISCONTINUE ALL PREVIOUS NARCOTICS FS SCH (22:45)
[2020-03-22] MEDS ORDERED: Lidocaine 1% (PF) 30 ML VIAL ONE (22:51)
[2020-03-22] MEDS ORDERED: Acetaminophen 325 MG TAB PO PRN (23:42)
[2020-03-22] MEDS ORDERED: ePHEDrine 50 MG/ML VIAL SLOW IVP PRN (23:42)
[2020-03-22] MEDS ORDERED: Lactated Ringer's 500 ML IV PRN (23:42)
[2020-03-22] MEDS ORDERED: Naloxone HCl 0.4 mg/ml Vial IVP PRN ×2 (23:42)
[2020-03-22] MEDS ORDERED: Ondansetron PF 4 MG/2 ML Vial IVP PRN (23:42)
[2020-03-22] MEDS ORDERED: diphenhydrAMINE 50 MG/ML VIAL IVP PRN (23:42)
[2020-03-22] MEDS ORDERED: Fentanyl 4 mcg/Bupivacaine 0.1% Cassette 100 ML EPIDURAL SCH (23:45)
[2020-03-22] MEDS ORDERED: Communication Order-Pharmacy FS SCH (23:45)
[2020-03-23] MEDS ORDERED: Misoprostol 200 MCG TAB ONE (00:26)
[2020-03-23] MEDS ORDERED: hydrALAZINE 20 MG/ML VIAL ONE ×2 (01:34→02:09)
[2020-03-23] MEDS ORDERED: Butorphanol Tartrate 1 MG/ML VIAL ONE (02:03)
[2020-03-23] MEDS: Ondansetron PF 4 MG/2 ML Vial IVP PRN ×2 (04:03→08:11)
[2020-03-23] MEDS ORDERED: Calcium Gluconate 4.6 MEQ in Sodium Chloride 0.9% 100 ML IVPB PRN (04:08)
[2020-03-23] MEDS ORDERED: Bisacodyl 10 MG SUPP PR PRN (04:08)
[2020-03-23] MEDS ORDERED: Benzocaine-Menthol 82.5 ML CAN TOP PRN (04:08)
[2020-03-23] MEDS ORDERED: NS / Oxytocin 40 units/1000ml 1,000 ML IV SCH (04:08)
[2020-03-23] MEDS ORDERED: Preparation H Ointment 28 GM TUBE PR PRN (04:08)
[2020-03-23] MEDS ORDERED: Milk Of Magnesia 30 ML UDCUP PO PRN (04:08)
[2020-03-23] MEDS: Magnesium Sulfate 20 gm/500 ml 20 GM/500 ML BAG IVPB SCH ×2 (04:35→13:47)
[2020-03-23] MEDS ORDERED: niCARdipine 25 MG in Sodium Chloride 0.9% 250 ML 240 ML IVPB SCH (04:45)
[2020-03-23] MEDS: Lactated Ringer's 1,000 ML IV SCH (05:05)
[2020-03-23 05:43] LABS: SARS-CoV-2 NAA Rapid Test Not Detected (NotDetected)
[2020-03-23] MEDS ORDERED: NS w/ Oxytocin 10 units 500 ML IV SCH ×2 (06:00)
[2020-03-23] MEDS: Labetalol HCl 100 MG/20 ML VIAL SLOW IVP SCH (06:28)
--- NOTE | 2020-03-23 07:48 | CON ---
DATE OF CONSULTATION: 03/23/2020 CONSULTING PHYSICIAN: Dr. Joseph. REASON FOR CONSULTATION: Hypertension in a patient. HISTORY OF PRESENT ILLNESS: This is a 35-year-old, G6, P4-1-0-5, who had a vaginal delivery last night at 38 weeks' gestation. The chess instructor told me that the patient had been having systolic blood pressures up to 200, but that she was not preeclamptic. The patient says that she is hypertensive at baseline and takes medicine at home, but does not know the name of it and had run out of it two days prior to admission. She is not very forthcoming in terms of history. PAST MEDICAL HISTORY: Hypertension. PAST SURGICAL HISTORY: None. OUTPATIENT MEDICATIONS: 1. Aspirin 81 mg daily. 2. vitamin 1 daily. 3. Claritin 10 mg daily. 4. Labetalol 300 mg b.i.d. SOCIAL HISTORY: Nonsmoker. Does not consume alcohol. Does not use illicit drugs. REVIEW OF SYSTEMS: Remarkable for migraine headache. Otherwise, negative. PHYSICAL EXAMINATION: VITAL SIGNS: Pulse 89, O2 saturation 98% on room air, respiratory rate 23, blood pressure 154/78. Currently on no antihypertensive drips. HEENT: Unremarkable. NECK: No adenopathy or JVD. LUNGS: Clear. CARDIAC: S1 and S2 regular without audible murmur. ABDOMEN: Soft and nontender. EXTREMITIES: No edema. LABORATORY DATA: White blood cell count 8.4, hematocrit 39.3, platelet count 277. Sodium 138, potassium 4, chloride 107, CO2 of 19, BUN 11, creatinine 0.6, glucose 94, AST 23, ALT 25, alkaline phosphatase 165. Urinalysis showed a total protein of 13, but this is within normal range. Drug screen was negative. COVID test was negative. ASSESSMENT: patient with chronic hypertension, who came in with elevated blood pressures. RECOMMENDATIONS: 1. Goal systolic blood pressure around 160 for the first 24 to 48 hours. Targeting any lower at this time would be dangerous. If she is truly not preeclamptic, then I am not sure the magnesium is actually needed. 2. Restart her antihypertensives orally tomorrow and hopefully transfer out of the CCU then. Job ID: [id number]
[2020-03-23] MEDS: Docusate Calcium (SURFAK) 240 MG CAP PO SCH ×2 (08:12→22:47)
[2020-03-23 08:32] LABS: Anion Gap 14 mmol/L (10-20); BUN (Urea Nitrogen) 9 mg/dL (7.0-18.7); Calc. Creatinine Clearance 165 mL/min (70-130); Calcium 7.5 mg/dL (7.8-10.44); Carbon Dioxide 20 mmol/L (22-29); Chloride 103 mmol/L (98-107); Estimated GFR-MDRD Greater than 90; Glucose 137 mg/dL (70-105); Potassium 3.8 mmol/L (3.5-5.1); Sodium 133 mmol/L (136-145)
[2020-03-23] MEDS ORDERED: Labetalol 100 MG TAB PO SCH ×3 (09:00→21:00)
[2020-03-23] MEDS ORDERED: Varicella virus, LIVE 0.5 ML VIAL SC ONE (09:00)
[2020-03-23] MEDS ORDERED: Measles/Mumps/Rubella 10 MCG/0.5 ML VIAL SC ONE (09:00)
[2020-03-23] MEDS ORDERED: Adacel (T-DAP) 0.5 ML SYRINGE IM ONE (09:00)
[2020-03-23 09:14] LABS: Bilirubin Negative (Negative); Blood, Urine 2+ (Negative); Clarity Turbid (Clear); Glucose, Urine (Dipstick) Normal (Negative); Ketone, Urine 20 mg/dL (Negative); Leukocyte 25 Leu/uL (Negative); Nitrite Negative (Negative); Protein, Urine (Dipstick) 10 mg/dL (Neg-Trace); Specific Gravity, Urine 1.012 (1.002-1.036); Urobilinogen Normal mg/dL (Less than 2); pH, Urine 6.5 (5.0-9.0)
[2020-03-23] MEDS: HYDROcodone/Acetaminophen 5/325 mg Tablet PO PRN ×2 (10:40→12:38)
[2020-03-23] MEDS ORDERED: hydrALAZINE 20 MG/ML VIAL SLOW IVP SCH (14:00)
[2020-03-23 18:00] LABS: Hemoglobin 12.8 g/dL (12.0-16.0); Mean Corpuscular HGB CONC 33.5 g/dL (32.0-36.0); Mean Corpuscular Hemoglobin 29.1 pg (27.0-31.0); Mean Platelet Volume 7.5 fL (7.4-10.4); Platelet Count 216 thou/uL (130-400); RBC Distribution Width 14.1 % (11.5-14.5); Red Blood Cell (RBC) Count 4.38 mill/uL (4.20-5.40); White Blood Cell (WBC) Count 8.9 thou/uL (4.8-10.8)
[2020-03-23 18:24] LABS: ALT (SGPT) 23 U/L (8-55); AST (SGOT) 25 U/L (5-34); Albumin 3.1 g/dL (3.5-5.0); Alkaline Phosphatase 143 U/L (40-110); Anion Gap 14 mmol/L (10-20); BUN (Urea Nitrogen) 8 mg/dL (7.0-18.7); Bilirubin, Total 0.5 mg/dL (0.2-1.2); Calc. Creatinine Clearance 156 mL/min (70-130); Calcium 6.9 mg/dL (7.8-10.44); Carbon Dioxide 20 mmol/L (22-29); Chloride 103 mmol/L (98-107); Estimated GFR-MDRD Greater than 90; Globulin 2.9 g/dL (2.4-3.5); Glucose 155 mg/dL (70-105); Potassium 3.8 mmol/L (3.5-5.1); Sodium 133 mmol/L (136-145)
[2020-03-23 18:53] LABS: HIV (1/2) Antibody/Antigen Non-Reactive (NonReactive); Hep C IgG Ab Non-Reactive (NonReactive); Hep C Index 0.06 S/CO (0-0.79)
[2020-03-24] MEDS: hydrALAZINE 20 MG/ML VIAL SLOW IVP PRN ×3 (01:13→18:59)
[2020-03-24] MEDS ORDERED: hydrALAZINE 20 MG/ML VIAL SLOW IVP SCH (01:15)
[2020-03-24] MEDS: HYDROcodone/Acetaminophen 5/325 mg Tablet PO PRN ×4 (01:28→21:34)
[2020-03-24] MEDS: Ibuprofen 800 MG TAB PO PRN ×3 (01:28→19:53)
[2020-03-24] MEDS ORDERED: hydrALAZINE 20 MG/ML VIAL SLOW IVP PRN (01:45)
[2020-03-24] MEDS: Labetalol 100 MG TAB PO SCH ×3 (04:10→16:23)
[2020-03-24] MEDS: Docusate Calcium (SURFAK) 240 MG CAP PO SCH ×2 (08:32→21:33)
[2020-03-24] MEDS ORDERED: Hydrochlorothiazide 25 MG TAB PO SCH (14:15)
[2020-03-24] MEDS: hydrALAZINE 10 MG TAB PO SCH (23:23)
[2020-03-24] MEDS ORDERED: diphenhydrAMINE 25 MG CAP PO SCH (23:30)
[2020-03-24 23:36] LABS: ALT (SGPT) 22 U/L (8-55); AST (SGOT) 20 U/L (5-34); Albumin 3.1 g/dL (3.5-5.0); Alkaline Phosphatase 121 U/L (40-110); Anion Gap 13 mmol/L (10-20); BUN (Urea Nitrogen) 11 mg/dL (7.0-18.7); Bilirubin, Total 0.3 mg/dL (0.2-1.2); Calc. Creatinine Clearance 175 mL/min (70-130); Calcium 8.1 mg/dL (7.8-10.44); Carbon Dioxide 22 mmol/L (22-29); Chloride 103 mmol/L (98-107); Estimated GFR-MDRD Greater than 90; Glucose 108 mg/dL (70-105); Potassium 3.8 mmol/L (3.5-5.1); Protein, Total 6.1 g/dL (6.0-8.3); Sodium 134 mmol/L (136-145)
[2020-03-25] MEDS: Ibuprofen 800 MG TAB PO PRN (04:34)
[2020-03-25] MEDS: Labetalol 100 MG TAB PO SCH (04:45)
[2020-03-25] MEDS: hydrALAZINE 20 MG/ML VIAL SLOW IVP PRN (05:02)
[2020-03-25] MEDS: hydrALAZINE 10 MG TAB PO SCH ×3 (05:10→11:39)
--- NOTE | 2020-03-25 07:04 | DN ---
DATE OF PROCEDURE: 03/23/2020 TIME: 0033 Central Standard Time. PREOPERATIVE DIAGNOSES: Intrauterine at 38 weeks and 1 day with chronic hypertension and severe range blood pressures when presented to Labor and Delivery. POSTOPERATIVE DIAGNOSES: Intrauterine at 38 weeks and 1 day with chronic hypertension and severe range blood pressures when presented to Labor and Delivery. PROCEDURE: Spontaneous vaginal delivery over intact perineum. FINDINGS: Viable female infant weighing 3555 g or 7 pounds 13 ounces. Apgars 7 and 8. QUANTITATIVE BLOOD LOSS: 639 mL. COMPLICATIONS: None. PROCEDURE IN DETAIL: The patient presented to [facility] where she was admitted to the labor and delivery service. The patient underwent a normal and uneventful labor with normal cervical dilatation until she was found to be completely dilated. She was then allowed to push and was able to bring the baby down and delivered the baby in a vertex presentation without difficulties. Once the head delivered in occiput anterior position, the shoulders followed spontaneously along with the rest of the baby's body. Once out the baby's mouth and nose were bulb suctioned. The cord was clamped and cut and baby was handed to waiting attendants. Cord blood was collected. Gentle fundal massage was performed and the placenta delivered intact without problems. Hemostasis was assured. Quantitative blood loss was calculated. Inspection of the cervix, vaginal vault, and perineum did not reveal any lacerations needing suturing. Once again, hemostasis was within normal limits and the patient was allowed to recover in the labor and delivery room. Baby went to nursery. Job ID: [id number]
[2020-03-25] MEDS: HYDROcodone/Acetaminophen 5/325 mg Tablet PO PRN (08:16)
[2020-03-25] MEDS: Docusate Calcium (SURFAK) 240 MG CAP PO SCH (08:17)
[2020-03-25] MEDS ORDERED: Hydrochlorothiazide 25 MG TAB PO SCH (09:00)
[2020-03-25 11:55] VITALS: BP 153/74; TEMP 98.3
== END 2020-03-25 13:50 | disposition home or self-care (01) | DRG 807 ==
LOC: L&D 17:00 → CCU 03-23 03:44 → L&D 03-23 18:04 → 3SW 03-23 21:00
PROVIDERS: ADMIT Obstetrics & Gynecology; ATTEND Obstetrics & Gynecology
PROC: 10E0XZZ Delivery of Products of Conception, External Approach (ICD-10-PCS; principal; 2020-03-23)
PROC: 10907ZC Drainage of Amniotic Fluid, Therapeutic from Products of Conception, Via Natural or Artificial Opening (ICD-10-PCS; 2020-03-23)
PROC: 3E033VJ Introduction of Other Hormone into Peripheral Vein, Percutaneous Approach (ICD-10-PCS; 2020-03-23)
DX: O10.92 Unspecified pre-existing hypertension complicating childbirth (principal); Z37.0 Single live birth; Z3A.38 38 weeks gestation of pregnancy; Z20.828 Contact with and (suspected) exposure to other viral communicable diseases
CPT/HCPCS: 36415; 51702; 80048; 80053; 80306; 81003; 82570; 84156; 85027; 86762; 86780; 86803; 86850; 86900; 86901; 87340; 87389; 87635; J0360; J0595; J2405; J2550; J3010; J3475; J3490; Q0163; S0020; U0002; U0003